=== PATIENT | male | born 1940 | race Caucasian/White ===

== ENCOUNTER 2016-11-06 09:29 | Inpatient (IN) | payer MEDICARE, BC ==
[~2016-11-06] VITALS: Ht 175.3 cm; Wt 100.2 kg
[2016-11-06] MEDS: AMLODIPINE BESYLATE 5 MG TABLET PO SCH (09:00)
[~2016-11-06 09:29] MED LIST: AMLO1CAP15 PO; IRBE300T3 PO; RIVA10TA PO
[2016-11-06] MEDS ORDERED: RIVA20TA2 PO (11:53)
[2016-11-06] MEDS ORDERED: AMLO5TAB2 PO (11:53)
[2016-11-06] MEDS ORDERED: IRBE150T3 PO (11:53)
[2016-11-06] MEDS ORDERED: CELE200C PO (11:53)
[2016-11-06] MEDS ORDERED: ATOR40TA59 PO (11:53)
[2016-11-06 12:00] VITALS: BP 150/60
[2016-11-06 12:40] LABS: CALCIUM 9.3 mg/dL (8.5-10.1); CREATININE 1.3 mg/dL (0.7-1.3); GFR 53.4; POTASSIUM 4.6 mmol/L (3.5-5.1)
[2016-11-06 12:44] LABS: BASO # 0.2 x10^3/uL (0.0-0.2); BASO % 1 % (0-3); EOS % 2 % (0-3); HEMOGLOBIN 12.3 g/dL (13.0-17.5); LYMPH # 0.8 x10^3/uL (1.0-4.8); LYMPH % 4 % (24-48); MEAN CORPUSCULAR HEMOGLOBIN 28 pg (25-35); MEAN CORPUSCULAR HGB CONC 32 g/dL (31-37); MEAN CORPUSCULAR VOLUME 86 fL (79-100); MONO % 36 % (0-9); NEUT % 57 % (31-73); PLATELET COUNT 207 x10^3/uL (140-400); RED BLOOD COUNT 4.42 x10^6/uL (4.30-5.70); RED CELL DISTRIBUTION WIDTH 20.3 % (11.5-14.5); WHITE BLOOD COUNT 20.1 x10^3/uL (4.0-11.0)
[2016-11-06] MEDS ORDERED: VITA400C36 PO (13:05)
[2016-11-06 13:10] LABS: % EOS 1 % (0-5); PLT ESTIMATE ADEQUATE (ADEQUATE)
[2016-11-06 13:11] LABS: ANISOCYTOSIS PRESENT
[2016-11-06 13:22] VITALS: BP 150/60
--- NOTE | 2016-11-06 14:05 | RAD ---
EXAM: Carotid Doppler sonogram. HISTORY: Dizziness. TECHNIQUE: Doppler sonographic evaluation of the neck was performed and static images are submitted for review. FINDINGS: There is moderate to severe atherosclerotic plaque within the right carotid bulb and internal and external carotid arteries and mild atherosclerotic plaque within the left carotid bulb and internal and external carotid arteries. The peak systolic velocity within the right common carotid artery is 87 cm/sec. The peak systolic velocities within the right proximal, mid and distal internal carotid artery are 233 cm/sec, 147 cm/sec, and 95 cm/sec, respectively. The peak systolic velocity within the right ECA is 461 cm/sec. The peak systolic velocity within the left common carotid artery is 139 cm/sec. The peak systolic velocities within the left proximal, mid and distal internal carotid artery are 117 cm/sec, 90 cm/sec, and 105 cm/sec, respectively. There is normal antegrade flow within both vertebral arteries. IMPRESSION: 1. Elevated peak systolic velocity within the right ICA, suggesting greater than 70% stenosis. This is slightly increased compared to the prior study. There is corresponding moderate to severe atherosclerotic plaque within the right carotid bulb and internal and external carotid arteries. 2. Mild atherosclerotic plaque within the left carotid bulb and internal and external carotid arteries, without Doppler evidence to suggest greater than 50% stenosis. 3. Elevated peak systolic velocity within the right external carotid artery, consistent with hemodynamically significant stenosis. This is increased compared to the prior study. PQRS Statement: NASCET criteria were utilized for this exam.
[2016-11-06] MEDS ORDERED: ACET325T9 PO (14:25)
[2016-11-06 15:17] VITALS: BP 157/65
--- NOTE | 2016-11-06 16:12 | RAD ---
PROCEDURE MRI brain without contrast. HISTORY Left arm numbness and dizziness. Gait disturbance. Possible stroke. TECHNIQUE Sagittal T1, axial T1, axial T2, axial FLAIR, axial T2 gradient, coronal T2, and diffusion imaging with ADC map were performed. COMPARISON None. FINDINGS There is symmetric prominence of the ventricles and sulci. FLAIR hyperintensities in the supratentorial white matter are nonspecific but most suggestive of minimal small vessel ischemic disease. There is a small old left frontoparietal infarct. There is a triangular focus of restricted diffusion with ADC correlate in the right thalamus measuring up to 14 millimeters in size. There is no hemorrhagic transformation. There is no acute intracranial hemorrhage or extra-axial fluid collection. Intracranial flow voids are preserved. Cervicomedullary junction is unremarkable. Pituitary and suprasellar region are unremarkable. There is minimal ethmoid mucosal thickening. There is partial opacification of the right mastoid air cells. Jeanette, the patient's nurse, was notified of infarct at 1608 hours. IMPRESSION 1. Small acute infarct right thalamus. 2. Small old left frontoparietal infarct. This likely involves the motor strip. 3. Brain parenchymal volume loss and minimal probable small-vessel ischemic disease. Electronically signed by: Jorge Carcamo MD (Nov 06, 2016 16:10:25)
[2016-11-06] MEDS: LOSARTAN POTASSIUM 50 MG TABLET. PO SCH (16:27)
[2016-11-06] MEDS ORDERED: RIVAROXABAN 10 MG TABLET. PO SCH (17:00)
--- NOTE | 2016-11-06 17:54 | PDOC2 ---
NEUROLOGY CONSULT Date of Admission Date of Admission DATE: 11/06/16 TIME: 17:42 Reason for Consult Reason for Consult: IMPRESSION: Acute small right thalamus infarct. Left side numbness. Right ICA stenosis > 70%. HTN HLD CAD, s/p CABG PE, Hx. DVT. 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 RECOMMENDATIONS/PLAN: Continue Xarelto 20 mg daily. Continue Lipitor 40 mg HS. Brain MRI performed on 11/06. Carotid A US + Doppler, performed. Echo + Bubble study. Fasting lipids. and other labs. Please consult Vascular Surgery. HISTORY OF THE PRESENT ILLNESS: 76-y-old male patient with Hx of a stroke in 2001 with right side weakness but recovered well after stroke. He wake up in the morning on 11/06 feeling numbness in his left side face, UE and LE extremities. The onset time of his symptoms was unknown. he stated no motor or cranial nerve involvement. PAST MEDICAL HISTORY: Please see above. PAST SURGERY HISTORY: Cataract surgery Tonsillectomy Adenoidectomy CABG Hernia Repair ALLERGY: Reviewed. MEDICATIONS: Refer to [facility] FAMILY HISTORY: Non contributory. SOCIAL HISTORY: Lives at home. Denies current smoking, drinking, and illicit drug use. He smoked in past but quit smoking in 1990. REVIEW OF SYSTEMS: Constitutional: No malnutrition, weight loss, cachexia. Head: No recent traumatic brain or head injury. Skin: No edema, or rash. Ear: No infection. Eyes: No vision loss or color blindness. Nose: No bleeding or purulent discharges. Hearing: No hearing decrease. Neck: No injury. Cardiac: CAD, s/p CABG, HTN, HLD. Pulmonary: No COPD. GI: No GI ulcer, GI bleeding. Urinary/genital: No dysuria, hematuria, incontinence, urinary retention. Endocrinologic: No cousin face, craniofacial dysmorphism, polydactyly.. Skeletomuscular: No muscular atrophy, deformity. Neurological: see HP. Psychiatric: Denies drug use/abuse. Otherwise, not [id number] review of systems. PHYSICAL EXAMINATION: General appearance is in subacute distress. HEENT: Normocephalic and nontraumatic. Eyes, nose, ears, and throat are unremarkable. Neck is supple. No lymphadenopathy. No crepitus. Cardiovascular: S1, S2, regular rate and rhythm. Pulmonary: Clear to auscultation bilaterally. Abdomen: Bowel sounds are positive. Abdomen is soft, nontender, and nondistended. Extremities: No rash, lesions, or edema. No restriction of range of motion NEUROLOGICAL EXAMINATION: Alert Oriented to time, place and person. PERRL. EOMI. CN: no focal findings. Muscle tone: within normal. Muscle strength: 5 DTR: 2 Plantar reflex: Flexor response bilaterally Gait: not examined in bed. Sensory exam: no abnormal findings. No cerebellar signs elicited. F-T-N test accurate. Current Medications Current Medications Current Medications Acetaminophen (Tylenol) 650 mg HS PO ; Start 11/06/16 at 21:00 Amlodipine Besylate (Norvasc) 5 mg DAILY PO ; Start 11/06/16 at 09:00 Atorvastatin Calcium (Lipitor) 40 mg DAILY PO ; Start 11/07/16 at 09:00 Celecoxib (Celebrex) 200 mg DAILY PO ; Start 11/07/16 at 09:00 Losartan Potassium (Cozaar) 50 mg DAILY PO Last administered on 11/06/16t 16:27 ; Start 11/06/16 at 15:00 Rivaroxaban (Xarelto) 20 mg DAILYWSUP PO ; Start 11/06/16 at 17:00 Vitamin E 400 unit DAILY PO ; Start 11/07/16 at 09:00 Active Scripts Active Reported Tylenol (Acetaminophen) 325 Mg Tablet 2 Tab PO HS Vitamin E (Vitamin E Mixed) 400 Unit Capsule 400 Unit PO DAILY Celebrex (Celecoxib) 200 Mg Capsule 1 Cap PO DAILY Irbesartan 150 Mg Tablet 150 Mg PO DAILY Atorvastatin Calcium 40 Mg Tablet 1 Tab PO DAILY Amlodipine Besylate 5 Mg Tablet 5 Mg PO DAILY Xarelto (Rivaroxaban) 20 Mg Tablet 20 Mg PO DAILY Allergies Allergies: Coded Allergies: No Known Drug Allergies (Unverified , 01/14/15) Vitals VITALS Vital Signs Date Time Temp Pulse Resp B/P Pulse Ox O2 Delivery O2 Flow Rate FiO2 11/06/16 16:27 95 157/65 11/06/16 15:17 97.7 15 94 Room Air 97.7 Labs Labs Laboratory Tests Test 11/06/16 12:20 White Blood Count 20.1x10^3/uL (4.0-11.0) Red Blood Count 4.42x10^6/uL (4.30-5.70) Hemoglobin 12.3g/dL (13.0-17.5) Hematocrit 38.0% (39.0-53.0) Mean Corpuscular Volume 86fL (79-100) Mean Corpuscular Hemoglobin 28pg (25-35) Mean Corpuscular Hemoglobin Concent 32g/dL (31-37) Red Cell Distribution Width 20.3% (11.5-14.5) Platelet Count 207x10^3/uL (140-400) Neutrophils (%) (Auto) 57% (31-73) Lymphocytes (%) (Auto) 4% (24-48) Monocytes (%) (Auto) 36% (0-9) Eosinophils (%) (Auto) 2% (0-3) Basophils (%) (Auto) 1% (0-3) Neutrophils # (Auto) 11.5x10^3uL (1.8-7.7) Lymphocytes # (Auto) 0.8x10^3/uL (1.0-4.8) Monocytes # (Auto) 7.2x10^3/uL (0.0-1.1) Eosinophils # (Auto) 0.4x10^3/uL (0.0-0.7) Basophils # (Auto) 0.2x10^3/uL (0.0-0.2) Segmented Neutrophils % 56% (35-66) Band Neutrophils % 4% (0-9) Lymphocytes % 5% (24-48) Monocytes % 34% (0-10) Eosinophils % 1% (0-5) Platelet Estimate Adequate (ADEQUATE) Anisocytosis Present Erythrocyte Sedimentation Rate 24 (0-15) Sodium Level 135mmol/L (136-145) Potassium Level 4.6mmol/L (3.5-5.1) Chloride Level 101mmol/L (98-107) Carbon Dioxide Level 26mmol/L (21-32) Anion Gap 8 (6-14) Blood Urea Nitrogen 19mg/dL (8-26) Creatinine 1.3mg/dL (0.7-1.3) Estimated GFR (Cockcroft-Gault) 53.4 Glucose Level 105mg/dL (70-99) Calcium Level 9.3mg/dL (8.5-10.1) Laboratory Tests Test 11/06/16 12:20 White Blood Count 20.1x10^3/uL (4.0-11.0) Red Blood Count 4.42x10^6/uL (4.30-5.70) Hemoglobin 12.3g/dL (13.0-17.5) Hematocrit 38.0% (39.0-53.0) Mean Corpuscular Volume 86fL (79-100) Mean Corpuscular Hemoglobin 28pg (25-35) Mean Corpuscular Hemoglobin Concent 32g/dL (31-37) Red Cell Distribution Width 20.3% (11.5-14.5) Platelet Count 207x10^3/uL (140-400) Neutrophils (%) (Auto) 57% (31-73) Lymphocytes (%) (Auto) 4% (24-48) Monocytes (%) (Auto) 36% (0-9) Eosinophils (%) (Auto) 2% (0-3) Basophils (%) (Auto) 1% (0-3) Neutrophils # (Auto) 11.5x10^3uL (1.8-7.7) Lymphocytes # (Auto) 0.8x10^3/uL (1.0-4.8) Monocytes # (Auto) 7.2x10^3/uL (0.0-1.1) Eosinophils # (Auto) 0.4x10^3/uL (0.0-0.7) Basophils # (Auto) 0.2x10^3/uL (0.0-0.2) Segmented Neutrophils % 56% (35-66) Band Neutrophils % 4% (0-9) Lymphocytes % 5% (24-48) Monocytes % 34% (0-10) Eosinophils % 1% (0-5) Platelet Estimate Adequate (ADEQUATE) Anisocytosis Present Erythrocyte Sedimentation Rate 24 (0-15) Sodium Level 135mmol/L (136-145) Potassium Level 4.6mmol/L (3.5-5.1) Chloride Level 101mmol/L (98-107) Carbon Dioxide Level 26mmol/L (21-32) Anion Gap 8 (6-14) Blood Urea Nitrogen 19mg/dL (8-26) Creatinine 1.3mg/dL (0.7-1.3) Estimated GFR (Cockcroft-Gault) 53.4 Glucose Level 105mg/dL (70-99) Calcium Level 9.3mg/dL (8.5-10.1) KEN ISAAC MD Nov 06, 2016 17:54
[2016-11-06 19:15] VITALS: BP 154/59
--- NOTE | 2016-11-06 19:53 | PDOC ---
Provider Note Provider Note Vascular Consult dictated Imp: Symptomatic rt. carotid stenosis ~ 70% + MRI for small infarct rt. hemisphere Symptoms of numbness lt side , no weakness or speech problems Plan: Hold Xarelto, Start Plavix Tentatively plan for a rt. carotid endarterectomy on . afternoon Nature of procedure and risks explained JAMEEL OVIEDO MD Nov 06, 2016 19:53
[2016-11-06] MEDS: ACETAMINOPHEN 325 MG TABLET. PO SCH (20:36)
[2016-11-06] MEDS: CLOPIDOGREL BISULFATE 75 MG TABLET PO SCH (20:36)
--- NOTE | 2016-11-06 21:03 | PDOC ---
GENERAL General: see dictated H&P. Problems: VITAL SIGNS Vital Signs: Vital Signs Date Time Temp Pulse Resp B/P Pulse Ox O2 Delivery O2 Flow Rate FiO2 11/06/16 19:15 99.0 95 20 154/59 95 Room Air 99.0 ALLERGIES Allergies: Allergies Coded Allergies Type Severity Reaction Last Updated Verified No Known Drug Allergies 01/14/15 No MEDS Medications: Current Medications Medications (Trade) Dose Ordered Sig/Damon Start Time Stop Time Status Last Admin Dose Admin Acetaminophen (Tylenol) 650 mg HS 11/06/16 21:00 11/06/16 20:36 650 MG Amlodipine Besylate (Norvasc) 5 mg DAILY 11/06/16 09:00 Atorvastatin Calcium (Lipitor) 40 mg DAILY 11/07/16 09:00 Celecoxib (Celebrex) 200 mg DAILY 11/07/16 09:00 Clopidogrel Bisulfate (Plavix) 75 mg DAILYWBKFT 11/06/16 20:15 11/06/16 20:36 75 MG Losartan Potassium (Cozaar) 50 mg DAILY 11/06/16 15:00 11/06/16 16:27 50 MG Rivaroxaban (Xarelto) 20 mg DAILYWSUP 11/06/16 17:00 Vitamin E 400 unit DAILY 11/07/16 09:00 LAB Lab: Laboratory Tests Test 11/06/16 12:20 White Blood Count 20.1x10^3/uL (4.0-11.0) Red Blood Count 4.42x10^6/uL (4.30-5.70) Hemoglobin 12.3g/dL (13.0-17.5) Hematocrit 38.0% (39.0-53.0) Mean Corpuscular Volume 86fL (79-100) Mean Corpuscular Hemoglobin 28pg (25-35) Mean Corpuscular Hemoglobin Concent 32g/dL (31-37) Red Cell Distribution Width 20.3% (11.5-14.5) Platelet Count 207x10^3/uL (140-400) Neutrophils (%) (Auto) 57% (31-73) Lymphocytes (%) (Auto) 4% (24-48) Monocytes (%) (Auto) 36% (0-9) Eosinophils (%) (Auto) 2% (0-3) Basophils (%) (Auto) 1% (0-3) Neutrophils # (Auto) 11.5x10^3uL (1.8-7.7) Lymphocytes # (Auto) 0.8x10^3/uL (1.0-4.8) Monocytes # (Auto) 7.2x10^3/uL (0.0-1.1) Eosinophils # (Auto) 0.4x10^3/uL (0.0-0.7) Basophils # (Auto) 0.2x10^3/uL (0.0-0.2) Segmented Neutrophils % 56% (35-66) Band Neutrophils % 4% (0-9) Lymphocytes % 5% (24-48) Monocytes % 34% (0-10) Eosinophils % 1% (0-5) Platelet Estimate Adequate (ADEQUATE) Anisocytosis Present Erythrocyte Sedimentation Rate 24 (0-15) Sodium Level 135mmol/L (136-145) Potassium Level 4.6mmol/L (3.5-5.1) Chloride Level 101mmol/L (98-107) Carbon Dioxide Level 26mmol/L (21-32) Anion Gap 8 (6-14) Blood Urea Nitrogen 19mg/dL (8-26) Creatinine 1.3mg/dL (0.7-1.3) Estimated GFR (Cockcroft-Gault) 53.4 Glucose Level 105mg/dL (70-99) Calcium Level 9.3mg/dL (8.5-10.1) ARSENIO ENGLISH MD Nov 06, 2016 21:03
--- NOTE | 2016-11-06 23:36 | HP ---
ADMIT DATE: 11/06/2016 CHIEF COMPLAINT AND HISTORY OF PRESENT ILLNESS: This 76-year-old white male who is well known to me from followup in the office for many years. The patient was admitted through the office on the day of admission after waking up with left-sided facial and arm and leg numbness. He had no motor deficits with this and was felt that he was having TIA versus stroke and was admitted for the same. PAST MEDICAL HISTORY: Remarkable for prior DVT for which he takes Xarelto. He has a history of prior CABG. He has had prior left-sided CVA in the past. MEDICATIONS: Brought with the patient, listed on the computer and have been addressed. ALLERGIES: He has no known drug allergies. SOCIAL HISTORY: The patient is a nonsmoker, nondrinker, does not use drugs. , lives at home with his . FAMILY HISTORY: Noncontributory. REVIEW OF SYSTEMS: As mentioned above. PHYSICAL EXAMINATION: GENERAL: He is a well-developed, well-nourished, pleasant white male, in no acute distress. VITAL SIGNS: Stable. He is afebrile. HEAD, EYES, EARS, NOSE AND THROAT: Remarkable for glasses. There is no facial weakness. NECK: Supple, without any thyromegaly. CHEST: Clear to auscultation and percussion. HEART: Regular rate and rhythm without S3, S4 or murmur. ABDOMEN: Soft, nontender, without hepatosplenomegaly or masses. EXTREMITIES: Without cyanosis, clubbing or edema. NEUROLOGIC: Nonfocal. IMPRESSION: Transient ischemic attack versus cerebrovascular accident. PLAN: The patient has been admitted and will be placed on telemetry. Neurology has been consulted. An MRI of the head . Laboratory has been ordered and the patient will be monitored, managed and treated appropriately. ARSENIO ENGLISH MD DR: OREN/analisa JOB#: [id number] / [id number]
[2016-11-06 23:43] VITALS: BP_SYST 145; BP_SYST 162; BP_DIAS 60; BP_DIAS 66
[2016-11-07 03:51] VITALS: BP 126/46
[2016-11-07 04:53] LABS: CHOLESTEROL/HDL RATIO 5.3
--- NOTE | 2016-11-07 05:27 | CONS ---
DATE OF CONSULTATION: 11/06/2016 REASON FOR CONSULTATION: Symptomatic right carotid stenosis. HISTORY OF PRESENT ILLNESS: This is a very pleasant 76-year-old male who presented with numbness on the left side of the face, the left arm and a little bit in the left leg this morning. This has persisted. He has had no weakness, no speech trouble. A carotid Doppler showed a 70% stenosis plus of the right carotid artery, minimal disease on the left side. An MRI was positive for a small right hemispheric stroke and an old left hemispheric stroke. He did have the left hemispheric stroke in 2001 with some right-sided weakness, but has recovered completely from that and had minimal carotid disease on the left side at that time. PAST MEDICAL HISTORY: He has had open heart surgery in the with vein harvested from the right leg and mammary bypass. He has a history of DVT and he is on Xarelto for that. PAST SURGICAL HISTORY: Other operations besides coronary artery bypass include hernia repair, cataract surgery and ____. ALLERGIES: None known. MEDICATIONS: As I said, he is on Xarelto, but he is not on aspirin. He has chronic low back pain, cannot walk very far because of his back pain and his legs giving out. He has minimal swelling from his DVT at this time. The patient is not a diabetic. Nonsmoker, quit in 1989 after his heart surgery. PHYSICAL EXAMINATION: GENERAL: A very pleasant male with speech clear, awake, alert, in no acute distress. CARDIOVASCULAR: Heart rate is regular. Well healed median sternotomy. LUNGS: Nonlabored respirations. ABDOMEN: Very obese. I could not feel any pulsatile masses even if they were present. EXTREMITIES: He has got femoral pulses intact. Popliteal pulses are very weak. I could not appreciate pedal pulses. No severe edema. He has got 2+ carotid pulses, 2+ radial pulses. NEUROLOGIC: Motor function is intact. He states he does have some numbers on the left side. IMPRESSION: Symptomatic right carotid stenosis. PLAN: Options were discussed with the patient. I have recommended holding the Xarelto. We will start Plavix. I have recommended right carotid endarterectomy under cervical block anesthetic. The nature of that procedure including the risk of bleeding, stroke, nerve injury, recurrent disease, infection were explained and he is agreeable to proceed and we would tentatively schedule this for pending an okay by Dr. Appl and if okay with the Neurologist, Dr. Rosas. I thank you for allowing me to see him. JAMEEL OVIEDO MD DR: ARISTEO/analisa JOB#: [id number] / [id number]
[2016-11-07 07:00] VITALS: BP 154/70
[2016-11-07] MEDS ORDERED: CLOPIDOGREL BISULFATE 75 MG TABLET PO SCH (08:00)
[2016-11-07] MEDS ORDERED: ATORVASTATIN CALCIUM 40 MG TABLET. PO SCH (09:00)
[2016-11-07] MEDS ORDERED: LEVO500T8 PO (09:15)
[2016-11-07] MEDS: CELECOXIB 200 MG CAPSULE PO SCH (09:22)
[2016-11-07] MEDS: CLOPIDOGREL BISULFATE 75 MG TABLET PO SCH (09:22)
[2016-11-07] MEDS: AMLODIPINE BESYLATE 5 MG TABLET PO SCH (09:22)
[2016-11-07] MEDS: VITAMIN E 200 UNIT CAPSULE. PO SCH (09:23)
[2016-11-07] MEDS: LOSARTAN POTASSIUM 50 MG TABLET. PO SCH (09:23)
[2016-11-07] MEDS: LEVOFLOXACIN 500 MG TABLET PO SCH (09:30)
[2016-11-07 10:43] VITALS: BP 147/65
--- NOTE | 2016-11-07 11:53 | PDOC ---
PROGRESS NOTES Objective Objective Vascular Surgery follow up: Patient is out of the room getting an echo. at bedside. Updated her on the plan for right CEA tomorrow with Dr. Martinez as long as neuro and PCP agree with plan. Perop orders have been done. Xarelto being held for surgery. Plavix initiated. Vital Signs Date Time Temp Pulse Resp B/P Pulse Ox O2 Delivery O2 Flow Rate FiO2 11/07/16 10:43 97.7 91 18 147/65 91 Room Air 97.7 Intake and Output 11/07/16 07:00 Intake Total 400 ml Output Total 600 ml Balance -200 ml Intake Oral 400 ml Output Urine Total 600 ml # Voids 7 Comment Review of Relevant I have reviewed the following items kiley (where applicable) has been applied. Labs Laboratory Tests Test 11/06/16 12:20 11/07/16 03:15 White Blood Count 20.1x10^3/uL (4.0-11.0) Red Blood Count 4.42x10^6/uL (4.30-5.70) Hemoglobin 12.3g/dL (13.0-17.5) Hematocrit 38.0% (39.0-53.0) Mean Corpuscular Volume 86fL (79-100) Mean Corpuscular Hemoglobin 28pg (25-35) Mean Corpuscular Hemoglobin Concent 32g/dL (31-37) Red Cell Distribution Width 20.3% (11.5-14.5) Platelet Count 207x10^3/uL (140-400) Neutrophils (%) (Auto) 57% (31-73) Lymphocytes (%) (Auto) 4% (24-48) Monocytes (%) (Auto) 36% (0-9) Eosinophils (%) (Auto) 2% (0-3) Basophils (%) (Auto) 1% (0-3) Neutrophils # (Auto) 11.5x10^3uL (1.8-7.7) Lymphocytes # (Auto) 0.8x10^3/uL (1.0-4.8) Monocytes # (Auto) 7.2x10^3/uL (0.0-1.1) Eosinophils # (Auto) 0.4x10^3/uL (0.0-0.7) Basophils # (Auto) 0.2x10^3/uL (0.0-0.2) Segmented Neutrophils % 56% (35-66) Band Neutrophils % 4% (0-9) Lymphocytes % 5% (24-48) Monocytes % 34% (0-10) Eosinophils % 1% (0-5) Platelet Estimate Adequate (ADEQUATE) Anisocytosis Present Erythrocyte Sedimentation Rate 24 (0-15) Sodium Level 135mmol/L (136-145) Potassium Level 4.6mmol/L (3.5-5.1) Chloride Level 101mmol/L (98-107) Carbon Dioxide Level 26mmol/L (21-32) Anion Gap 8 (6-14) Blood Urea Nitrogen 19mg/dL (8-26) Creatinine 1.3mg/dL (0.7-1.3) Estimated GFR (Cockcroft-Gault) 53.4 Glucose Level 105mg/dL (70-99) Calcium Level 9.3mg/dL (8.5-10.1) Triglycerides Level 128mg/dL (0-150) Cholesterol Level 96mg/dL (0-200) LDL Cholesterol, Calculated 52mg/dL (0-100) VLDL Cholesterol, Calculated 26mg/dL (0-40) HDL Cholesterol 18mg/dL (40-60) Cholesterol/HDL Ratio 5.3 Laboratory Tests Test 11/06/16 12:20 11/07/16 03:15 White Blood Count 20.1x10^3/uL (4.0-11.0) Red Blood Count 4.42x10^6/uL (4.30-5.70) Hemoglobin 12.3g/dL (13.0-17.5) Hematocrit 38.0% (39.0-53.0) Mean Corpuscular Volume 86fL (79-100) Mean Corpuscular Hemoglobin 28pg (25-35) Mean Corpuscular Hemoglobin Concent 32g/dL (31-37) Red Cell Distribution Width 20.3% (11.5-14.5) Platelet Count 207x10^3/uL (140-400) Neutrophils (%) (Auto) 57% (31-73) Lymphocytes (%) (Auto) 4% (24-48) Monocytes (%) (Auto) 36% (0-9) Eosinophils (%) (Auto) 2% (0-3) Basophils (%) (Auto) 1% (0-3) Neutrophils # (Auto) 11.5x10^3uL (1.8-7.7) Lymphocytes # (Auto) 0.8x10^3/uL (1.0-4.8) Monocytes # (Auto) 7.2x10^3/uL (0.0-1.1) Eosinophils # (Auto) 0.4x10^3/uL (0.0-0.7) Basophils # (Auto) 0.2x10^3/uL (0.0-0.2) Segmented Neutrophils % 56% (35-66) Band Neutrophils % 4% (0-9) Lymphocytes % 5% (24-48) Monocytes % 34% (0-10) Eosinophils % 1% (0-5) Platelet Estimate Adequate (ADEQUATE) Anisocytosis Present Erythrocyte Sedimentation Rate 24 (0-15) Sodium Level 135mmol/L (136-145) Potassium Level 4.6mmol/L (3.5-5.1) Chloride Level 101mmol/L (98-107) Carbon Dioxide Level 26mmol/L (21-32) Anion Gap 8 (6-14) Blood Urea Nitrogen 19mg/dL (8-26) Creatinine 1.3mg/dL (0.7-1.3) Estimated GFR (Cockcroft-Gault) 53.4 Glucose Level 105mg/dL (70-99) Calcium Level 9.3mg/dL (8.5-10.1) Triglycerides Level 128mg/dL (0-150) Cholesterol Level 96mg/dL (0-200) LDL Cholesterol, Calculated 52mg/dL (0-100) VLDL Cholesterol, Calculated 26mg/dL (0-40) HDL Cholesterol 18mg/dL (40-60) Cholesterol/HDL Ratio 5.3 Medications Current Medications Acetaminophen (Tylenol) 650 mg HS PO Last administered on 11/06/16 20:36; Start 11/06/16 at 21:00 Amlodipine Besylate (Norvasc) 5 mg DAILY PO Last administered on 11/07/16 09: 22; Start 11/06/16 at 09:00 Atorvastatin Calcium (Lipitor) 40 mg DAILY PO Last administered on 11/07/16 09 :23; Start 11/07/16 at 09:00 Celecoxib (Celebrex) 200 mg DAILY PO Last administered on 11/07/16 09:22; Start 11/07/16 at 09:00 Losartan Potassium (Cozaar) 50 mg DAILY PO Last administered on 11/07/16 09:23 ; Start 11/06/16 at 15:00 Rivaroxaban (Xarelto) 20 mg DAILYWSUP PO ; Start 11/06/16 at 17:00; Stop at 10:43; Status DC Vitamin E 400 unit DAILY PO Last administered on 11/07/16 09:23; Start at 09:00 Clopidogrel Bisulfate (Plavix) 75 mg DAILYWBKFT PO ; Start 11/07/16 at 08:00; Stop 11/07/16 at 08:00; Status DC Clopidogrel Bisulfate 75 mg 75 mg DAILYWBKFT PO Last administered on 11/07/16 09:22; Start 11/06/16 at 20:15 Heparin Sodium (Porcine) 5000 unit/Lactated Ringer's 505 ml @ 505 mls/hr 1X PERIOP ONCE IRR ; Start 11/08/16 at 08:00; Stop 11/08/16 at 08:59 Cefazolin Sodium/ Sodium Chloride (Ancef/Iv Sodium Chloride 0.9% 500ml Bag) 500 ml @ 500 mls/hr 1X PERIOP ONCE IRR ; Start 11/08/16 at 08:00; Stop 11/08/16 at 08:59 Levofloxacin (Levaquin) 500 mg DAILY06 PO Last administered on 11/07/16 09:30 ; Start 11/07/16 at 09:30; Stop 11/11/16 at 12:00 Active Scripts Active Reported Levofloxacin 500 Mg Tablet 1 Tab PO DAILY 10 Days Tylenol (Acetaminophen) 325 Mg Tablet 2 Tab PO HS Vitamin E (Vitamin E Mixed) 400 Unit Capsule 400 Unit PO DAILY Celebrex (Celecoxib) 200 Mg Capsule 1 Cap PO DAILY Irbesartan 150 Mg Tablet 150 Mg PO DAILY Atorvastatin Calcium 40 Mg Tablet 1 Tab PO DAILY Amlodipine Besylate 5 Mg Tablet 5 Mg PO DAILY Xarelto (Rivaroxaban) 20 Mg Tablet 20 Mg PO DAILY Vitals/I & O Vital Sign - Last 24 Hours 11/06/16 11/06/16 11/06/16 11/06/16 12:00 12:00 13:22 15:17 Temp 97.7 97.7 97.7 97.7 97.7 97.7 97.7 97.7 Pulse 98 98 98 95 Resp 15 15 15 B/P 150/60 150/60 150/60 157/65 Pulse Ox 94 94 94 94 O2 Delivery Room Air Room Air Room Air 11/06/16 11/06/16 11/06/16 11/06/16 16:27 19:15 20:00 23:43 Temp 99.0 99.1 99.0 99.1 Pulse 95 95 85 Resp 20 20 B/P 157/65 154/59 145/60 Pulse Ox 95 95 O2 Delivery Room Air Room Air Room Air 11/07/16 11/07/16 11/07/16 11/07/16 03:51 07:00 08:00 09:22 Temp 98.1 98.2 98.1 98.2 Pulse 86 81 81 Resp 18 18 B/P 126/46 154/70 154/70 Pulse Ox 94 92 O2 Delivery Room Air Room Air Room Air 11/07/16 11/07/16 09:23 10:43 Temp 97.7 97.7 Pulse 81 91 Resp 18 B/P 154/70 147/65 Pulse Ox 91 O2 Delivery Room Air Intake and Output 11/06/16 11/06/16 11/07/16 15:00 23:00 07:00 Intake Total 400 ml Output Total 600 ml Balance 400 ml -600 ml TIBURCIO MARTINEZ APRN Nov 07, 2016 11:53
--- NOTE | 2016-11-07 12:26 | CARD ---
APPROVED REPORT EXAM: Two-dimensional and M-mode echocardiogram with Doppler and color Doppler with bubble study. Other Information Quality : Average Rhythm : NSR INDICATION CVA/TIA Echo Enhancing Agent Indication: Rule Out Septal Defect Agent/Amount Used: Agitated Saline 8mL 2D DIMENSIONS RVDd2.6 (2.9-3.5cm)Left Atrium(2D)4.0 (1.6-4.0cm) IVSd1.5 (0.7-1.1cm)Aortic Root(2D)3.6 (2.0-3.7cm) LVDd5.3 (3.9-5.9cm)LVOT Diameter2.0 (1.8-2.4cm) PWd1.5 (0.7-1.1cm)LVDs3.9 (2.5-4.0cm) FS (%) 26.6 %SV69.7 ml LVEF(%)51.7 (>50%) Aortic Valve AoV Peak Chan.150.0cm/sAoV VTI25.3cm AO Peak GR.9.0mmHgLVOT Peak Chan.104.7cm/s AO Mean GR.5mmHgAVA (VMAX)2.27cm2 EDI (VTI)2.50cm2 Mitral Valve MV E Zwbsnwzj19.4cm/sMV E Peak Gr.5mmHg MV DECEL [id number] A Cmokdmjy67.3cm/s MV E Mean Gr.2mmHgMV ETG16re E/A Ratio0.7MV A Upvnejvk994sz MVA (PHT)4.62cm2 Tricuspid Valve TR P. Vdmhtwxf356kr/sRAP JPJXDRHN4ttFm TR Peak Gr.97sfRrKRYI56yrNr Pulmonary Vein S1 Ihaahiqg10.6cm/sD2 Guctzwvt15.0cm/s LEFT VENTRICLE The left ventricle is normal size. There is mild concentric left ventricular hypertrophy. Left ventri chetna systolic function is normal. The Ejection Fraction is 50-55%. There is normal LV segmental wall m otion. Tissue Doppler imaging reveals mild left ventricular diastolic dysfunction. Transmitral Dopple r flow pattern is Grade I-abnormal relaxation pattern. RIGHT VENTRICLE The right ventricle is normal size. The right ventricular systolic function is normal. ATRIA The left atrium size is normal. The right atrium size is normal. The interatrial septum is intact wit h no evidence for an atrial septal defect or patent foramen ovale as noted on 2-D or Doppler imaging. Negative bubble study. AORTIC VALVE The aortic valve is mildly sclerotic. The aortic valve is trileaflet. Doppler and Color Flow revealed no significant aortic regurgitation. There is no significant aortic valvular stenosis. MITRAL VALVE Mitral annular calcification is mild. There is no mitral valve stenosis. Doppler and Color Flow revea led trace mitral valve regurgitation noted. TRICUSPID VALVE The tricuspid valve is normal in structure and function. Doppler and Color Flow revealed trace tricus pid regurgitation. The PA pressure was estimated at 15 mmHg. There is no tricuspid valve stenosis. PULMONIC VALVE The pulmonic valve is not well visualized. Doppler and Color Flow revealed no pulmonic valvular regur gitation. There is no pulmonic valvular stenosis. GREAT VESSELS The aortic root is normal in size. Normal pulmonary venous flow (Doppler). The IVC was not visualized . PERICARDIAL EFFUSION There is no evidence of significant pericardial effusion. Critical Notification Critical Value: No <Conclusion> The left ventricle is normal size. Left ventricle systolic function is normal. The Ejection Fraction is 50-55%. There is mild concentric left ventricular hypertrophy. The interatrial septum is intact with no evidence for an atrial septal defect or patent foramen ovale as noted on 2-D or Doppler imaging. Negative bubble study. There is no significant aortic valvular stenosis. Doppler and Color Flow revealed no significant aortic regurgitation. Doppler and Color Flow revealed trace mitral valve regurgitation. Doppler and Color Flow revealed trace tricuspid regurgitation. The PA pressure was estimated at 15 mmHg.
--- NOTE | 2016-11-07 14:59 | PDOC ---
PROGRESS NOTES Assessment Assessment Acute small right thalamus infarct. Left side numbness. Right ICA stenosis > 70%. HTN HLD CAD, s/p CABG PE, Hx. DVT. 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 RECOMMENDATIONS/PLAN: He has been treated with Xarelto 20 mg daily. Continue Lipitor 40 mg HS. Vascular Surgery consulted. Discussed with him and his in detail at bedside on 11/07. Brain MRI performed on 11/06 stroke as above. Carotid A US + Doppler showed high grade stenosis in right ICA. Echo + Bubble study showed no significant abnormal findings. Fasting lipids were WNL. HISTORY OF THE PRESENT ILLNESS: 76-y-old male patient with Hx of a stroke in 2001 with right side weakness but recovered well after stroke. He wake up in the morning on 11/06 feeling numbness in his left side face, UE and LE extremities. The onset time of his symptoms was unknown. he stated no motor or cranial nerve involvement. No motor deficits. PAST MEDICAL HISTORY: Please see above. PAST SURGERY HISTORY: Cataract surgery Tonsillectomy Adenoidectomy CABG Hernia Repair ALLERGY: Reviewed. MEDICATIONS: Refer to [facility] FAMILY HISTORY: Non contributory. SOCIAL HISTORY: Lives at home. Denies current smoking, drinking, and illicit drug use. He smoked in past but quit smoking in 1990. REVIEW OF SYSTEMS: Constitutional: No malnutrition, weight loss, cachexia. Head: No recent traumatic brain or head injury. Skin: No edema, or rash. Ear: No infection. Eyes: No vision loss or color blindness. Nose: No bleeding or purulent discharges. Hearing: No hearing decrease. Neck: No injury. Cardiac: CAD, s/p CABG, HTN, HLD. Pulmonary: No COPD. GI: No GI ulcer, GI bleeding. Urinary/genital: No dysuria, hematuria, incontinence, urinary retention. Endocrinologic: No cousin face, craniofacial dysmorphism, polydactyly.. Skeletomuscular: No muscular atrophy, deformity. Neurological: see HP. Psychiatric: Denies drug use/abuse. Otherwise, not [id number] review of systems. PHYSICAL EXAMINATION: General appearance is in subacute distress. HEENT: Normocephalic and nontraumatic. Eyes, nose, ears, and throat are unremarkable. Neck is supple. No lymphadenopathy. No crepitus. Cardiovascular: S1, S2, regular rate and rhythm. Pulmonary: Clear to auscultation bilaterally. Abdomen: Bowel sounds are positive. Abdomen is soft, nontender, and nondistended. Extremities: No rash, lesions, or edema. No restriction of range of motion NEUROLOGICAL EXAMINATION: Alert Oriented to time, place and person. PERRL. EOMI. CN: no focal findings. Muscle tone: within normal. Muscle strength: 5 DTR: 2 Plantar reflex: Flexor response bilaterally Gait: at his baseline normal. Sensory exam: no abnormal findings. No cerebellar signs elicited. F-T-N test accurate. Objective Objective Vital Signs Date Time Temp Pulse Resp B/P Pulse Ox O2 Delivery O2 Flow Rate FiO2 11/07/16 10:43 97.7 91 18 147/65 91 Room Air 97.7 Intake and Output 11/07/16 07:00 Intake Total 400 ml Output Total 600 ml Balance -200 ml Intake Oral 400 ml Output Urine Total 600 ml # Voids 7 Vitals Signs Vitals VS - Last 72 Hours, by Label Date Time Temp Pulse Resp B/P Pulse Ox O2 Delivery O2 Flow Rate FiO2 11/07/16 10:43 97.7 91 18 147/65 91 Room Air 97.7 11/07/16 09:23 81 154/70 11/07/16 09:22 81 154/70 11/07/16 08:00 Room Air 11/07/16 07:00 98.2 81 18 154/70 92 Room Air 98.2 11/07/16 03:51 98.1 86 18 126/46 94 Room Air 98.1 11/06/16 23:43 99.1 85 20 145/60 95 Room Air 99.1 11/06/16 20:00 Room Air 11/06/16 19:15 99.0 95 20 154/59 95 Room Air 99.0 11/06/16 16:27 95 157/65 11/06/16 15:17 97.7 95 15 157/65 94 Room Air 97.7 11/06/16 13:22 97.7 98 150/60 94 97.7 11/06/16 12:00 97.7 98 15 150/60 94 Room Air 97.7 11/06/16 12:00 97.7 98 15 150/60 94 Room Air 97.7 11/06/16 11:00 Room Air Laboratory Laboratory Laboratory Tests Test 11/07/16 03:15 Triglycerides Level 128mg/dL (0-150) Cholesterol Level 96mg/dL (0-200) LDL Cholesterol, Calculated 52mg/dL (0-100) VLDL Cholesterol, Calculated 26mg/dL (0-40) HDL Cholesterol 18mg/dL (40-60) Cholesterol/HDL Ratio 5.3 Medication Medications Current Medications Acetaminophen (Tylenol) 650 mg HS PO Last administered on 11/06/16 20:36; Start 11/06/16 at 21:00 Atorvastatin Calcium (Lipitor) 40 mg DAILY PO Last administered on 11/07/16 09 :23; Start 11/07/16 at 09:00 Cefazolin Sodium/ Sodium Chloride (Ancef/Iv Sodium Chloride 0.9% 500ml Bag) 500 ml @ 500 mls/hr 1X PERIOP ONCE IRR ; Start 11/08/16 at 08:00; Stop 11/08/16 at 08:59 Celecoxib (Celebrex) 200 mg DAILY PO Last administered on 11/07/16 09:22; Start 11/07/16 at 09:00 Clopidogrel Bisulfate (Plavix) 75 mg DAILYWBKFT PO ; Start 11/07/16 at 08:00; Stop 11/07/16 at 08:00; Status DC Clopidogrel Bisulfate 75 mg 75 mg DAILYWBKFT PO Last administered on 11/07/16 09:22; Start 11/06/16 at 20:15 Fentanyl Citrate (Fentanyl 2ml Vial) 25 mcg PRN Q5MIN PRN IV MILD PAIN; Start 11/08/16 at 07:00; Stop 11/08/16 at 18:00 Fentanyl Citrate (Fentanyl 2ml Vial) 50 mcg PRN Q5MIN PRN IV MODERATE PAIN; Start 11/08/16 at 07:00; Stop 11/08/16 at 18:00 Heparin Sodium (Porcine) 5000 unit/Lactated Ringer's 505 ml @ 505 mls/hr 1X PERIOP ONCE IRR ; Start 11/08/16 at 08:00; Stop 11/08/16 at 08:59 Hydromorphone HCl (Dilaudid) 0.5 mg PRN Q10MIN PRN IV SEVERE PAIN, Second choice; Start 11/08/16 at 07:00; Stop 11/08/16 at 18:00 Lactated Ringer's (Iv Lactated Ringers) 1,000 ml @ 30 mls/hr Q24H IV ; Start at 07:00; Stop 11/08/16 at 18:59 Levofloxacin (Levaquin) 500 mg DAILY06 PO Last administered on 11/07/16 09:30 ; Start 11/07/16 at 09:30; Stop 11/11/16 at 12:00 Lidocaine HCl 2 ml 1X PRN PRN ID IV START; Start 11/08/16 at 07:00; Stop at 18:00 Losartan Potassium (Cozaar) 50 mg DAILY PO Last administered on 11/07/16 09:23 ; Start 11/06/16 at 15:00 Morphine Sulfate 1 mg 1 mg PRN Q10MIN PRN IV SEVERE PAIN; Start 11/08/16 at 07: 00; Stop 11/08/16 at 18:00 Prochlorperazine Edisylate (Compazine) 5 mg PACU PRN PRN IV NAUSEA; Start 11/08 at 07:00; Stop 11/08/16 at 18:00 Rivaroxaban (Xarelto) 20 mg DAILYWSUP PO ; Start 11/06/16 at 17:00; Stop at 10:43; Status DC Vitamin E 400 unit DAILY PO Last administered on 11/07/16 09:23; Start at 09:00 Comment Review of Relevant I have reviewed the following items kiley (where applicable) has been applied. KEN ISAAC MD Nov 07, 2016 14:59
[2016-11-07 15:00] VITALS: BP 125/57
--- NOTE | 2016-11-07 17:53 | PDOC ---
GENERAL General: vss and afebrile. awake and alert. still with left sided numbness. right thalamic infarct on mri and >70% right ICA stenosis. for CEA tomorrow. help of neurology and vascular surgery appreciated. Problems: VITAL SIGNS Vital Signs: Vital Signs Date Time Temp Pulse Resp B/P Pulse Ox O2 Delivery O2 Flow Rate FiO2 11/07/16 15:00 98.0 85 18 125/57 94 Room Air 98.0 I & O I & O Intake and Output 11/07/16 07:00 Intake Total 400 ml Output Total 600 ml Balance -200 ml Intake Oral 400 ml Output Urine Total 600 ml # Voids 7 ALLERGIES Allergies: Allergies Coded Allergies Type Severity Reaction Last Updated Verified No Known Drug Allergies 01/14/15 No MEDS Medications: Current Medications Medications (Trade) Dose Ordered Sig/Damon Start Time Stop Time Status Last Admin Dose Admin Acetaminophen (Tylenol) 650 mg HS 11/06/16 21:00 11/06/16 20:36 650 MG Amlodipine Besylate (Norvasc) 5 mg DAILY 11/06/16 09:00 11/07/16 09:22 5 MG Atorvastatin Calcium (Lipitor) 40 mg DAILY 11/07/16 09:00 11/07/16 09:23 40 MG Cefazolin Sodium/ Sodium Chloride (Ancef/Iv Sodium Chloride 0.9% 500ml Bag) 500 ml @ 500 mls/hr 1X PERIOP ONCE 11/08/16 08:00 11/08/16 08:59 Celecoxib (Celebrex) 200 mg DAILY 11/07/16 09:00 11/07/16 09:22 200 MG Clopidogrel Bisulfate (Plavix) 75 mg DAILYWBKFT 11/07/16 08:00 11/07/16 08:00 DC Clopidogrel Bisulfate 75 mg 75 mg DAILYWBKFT 11/06/16 20:15 11/07/16 09:22 75 MG Fentanyl Citrate (Fentanyl 2ml Vial) 50 mcg PRN Q5MIN PRN 11/08/16 07:00 11/08/16 18:00 Heparin Sodium (Porcine) 5000 unit/Lactated Ringer's 505 ml @ 505 mls/hr 1X PERIOP ONCE 11/08/16 08:00 11/08/16 08:59 Hydromorphone HCl (Dilaudid) 0.5 mg PRN Q10MIN PRN 11/08/16 07:00 11/08/16 18:00 Lactated Ringer's (Iv Lactated Ringers) 1,000 ml @ 30 mls/hr Q24H 11/08/16 07:00 11/08/16 18:59 Levofloxacin (Levaquin) 500 mg DAILY06 11/07/16 09:30 11/11/16 12:00 11/07/16 09:30 500 MG Lidocaine HCl 2 ml 1X PRN PRN 11/08/16 07:00 11/08/16 18:00 Losartan Potassium (Cozaar) 50 mg DAILY 11/06/16 15:00 11/07/16 09:23 50 MG Morphine Sulfate 1 mg 1 mg PRN Q10MIN PRN 11/08/16 07:00 11/08/16 18:00 Prochlorperazine Edisylate (Compazine) 5 mg PACU PRN PRN 11/08/16 07:00 11/08/16 18:00 Rivaroxaban (Xarelto) 20 mg DAILYWSUP 11/06/16 17:00 11/07/16 10:43 DC Vitamin E 400 unit DAILY 11/07/16 09:00 11/07/16 09:23 400 UNIT LAB Lab: Laboratory Tests Test 11/07/16 03:15 Triglycerides Level 128mg/dL (0-150) Cholesterol Level 96mg/dL (0-200) LDL Cholesterol, Calculated 52mg/dL (0-100) VLDL Cholesterol, Calculated 26mg/dL (0-40) HDL Cholesterol 18mg/dL (40-60) Cholesterol/HDL Ratio 5.3 ARSENIO ENGLISH MD Nov 07, 2016 17:53
[2016-11-07 19:20] VITALS: BP 141/61
[2016-11-07] MEDS: ACETAMINOPHEN 325 MG TABLET. PO SCH (22:04)
[2016-11-07 23:00] VITALS: BP 148/65
[2016-11-08 03:19] VITALS: BP 145/65
[2016-11-08] MEDS: LEVOFLOXACIN 500 MG TABLET PO SCH (06:19)
[2016-11-08 07:00] VITALS: BP 140/63
[2016-11-08] MEDS ORDERED: HYDROMORPHONE 2 MG/ML VIAL. IV PRN (07:00)
[2016-11-08] MEDS ORDERED: PROCHLORPERAZINE 10 MG/2 ML VIAL. IV PRN ×2 (07:00→19:00)
[2016-11-08] MEDS ORDERED: IV RINGERS,LACTATED 1000ML 1,000 ML IV SCH (07:00)
[2016-11-08] MEDS ORDERED: FENTANYL PF 100 MCG/2 ML VIAL. IV PRN ×2 (07:00)
[2016-11-08] MEDS ORDERED: LIDOCAINE 1% 1 ML SYRINGE. ID PRN (07:00)
[2016-11-08] MEDS ORDERED: MORPHINE SULFATE 2 MG/ML DISP.SYRIN. IV PRN ×3 (07:00→19:00)
[2016-11-08] MEDS ORDERED: CEFAZOLIN SODIUM 1 GM in IV NORMAL SALINE 500ML BAG 500 ML IRR ONE (08:00)
[2016-11-08] MEDS ORDERED: HEPARIN S0DIUM 5,000 UNIT in IV RINGERS,LACTATED 500ML 500 ML IRR ONE (08:00)
[2016-11-08] MEDS: CLOPIDOGREL BISULFATE 75 MG TABLET PO SCH (08:00)
[2016-11-08] MEDS: AMLODIPINE BESYLATE 5 MG TABLET PO SCH (09:00)
[2016-11-08] MEDS: VITAMIN E 200 UNIT CAPSULE. PO SCH (09:00)
[2016-11-08] MEDS: LOSARTAN POTASSIUM 50 MG TABLET. PO SCH (09:00)
[2016-11-08] MEDS: CELECOXIB 200 MG CAPSULE PO SCH (09:00)
[2016-11-08] MEDS: ATORVASTATIN CALCIUM 40 MG TABLET. PO SCH (09:00)
[2016-11-08 10:44] VITALS: BP 146/71
--- NOTE | 2016-11-08 14:09 | PDOC ---
PROGRESS NOTES Assessment Assessment Acute small right thalamus infarct. Left side numbness. Right ICA stenosis > 70%. HTN HLD CAD, s/p CABG PE, Hx. DVT. 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 RECOMMENDATIONS/PLAN: He was treated with Xarelto 20 mg daily but discontinued on 11/06 and Plavix since. Hold due to right carotid A endarterectomy on 11/08/16. Continue Lipitor 40 mg HS. Vascular Surgery consulted. Discussed with him and his in detail at bedside on 11/07. Brain MRI performed on 11/06 stroke as above. Carotid A US + Doppler showed high grade stenosis in right ICA. Echo + Bubble study showed no significant abnormal findings. Fasting lipids were WNL. HISTORY OF THE PRESENT ILLNESS: 76-y-old male patient with Hx of a stroke in 2001 with right side weakness but recovered well after stroke. He wake up in the morning on 11/06 feeling numbness in his left side face, UE and LE extremities. The onset time of his symptoms was unknown. he stated no motor or cranial nerve involvement. No motor deficits, but still has sensory symptoms on the left side UE and LE on 11/08. PAST MEDICAL HISTORY: Please see above. PAST SURGERY HISTORY: Cataract surgery Tonsillectomy Adenoidectomy CABG Hernia Repair ALLERGY: Reviewed. MEDICATIONS: Refer to [facility] FAMILY HISTORY: Non contributory. SOCIAL HISTORY: Lives at home. Denies current smoking, drinking, and illicit drug use. He smoked in past but quit smoking in 1990. REVIEW OF SYSTEMS: Constitutional: No malnutrition, weight loss, cachexia. Head: No recent traumatic brain or head injury. Skin: No edema, or rash. Ear: No infection. Eyes: No vision loss or color blindness. Nose: No bleeding or purulent discharges. Hearing: No hearing decrease. Neck: No injury. Cardiac: CAD, s/p CABG, HTN, HLD. Pulmonary: No COPD. GI: No GI ulcer, GI bleeding. Urinary/genital: No dysuria, hematuria, incontinence, urinary retention. Endocrinologic: No cousin face, craniofacial dysmorphism, polydactyly.. Skeletomuscular: No muscular atrophy, deformity. Neurological: see HP. Psychiatric: Denies drug use/abuse. Otherwise, not [id number] review of systems. PHYSICAL EXAMINATION: General appearance is in subacute distress. HEENT: Normocephalic and nontraumatic. Eyes, nose, ears, and throat are unremarkable. Neck is supple. No lymphadenopathy. No crepitus. Cardiovascular: S1, S2, regular rate and rhythm. Pulmonary: Clear to auscultation bilaterally. Abdomen: Bowel sounds are positive. Abdomen is soft, nontender, and nondistended. Extremities: No rash, lesions, or edema. No restriction of range of motion NEUROLOGICAL EXAMINATION: Alert Oriented to time, place and person. PERRL. EOMI. CN: no focal findings. Muscle tone: within normal. Muscle strength: 5 DTR: 2 Plantar reflex: Flexor response bilaterally Gait: at his baseline normal. Sensory exam: no abnormal findings. No cerebellar signs elicited. F-T-N test accurate. Objective Objective Vital Signs Date Time Temp Pulse Resp B/P Pulse Ox O2 Delivery O2 Flow Rate FiO2 11/08/16 13:21 98.0 94 20 159/72 94 Room Air 98.0 Intake and Output 11/08/16 07:00 Intake Total 1220 ml Balance 1220 ml Intake Oral 1220 ml # Voids 6 Vitals Signs Vitals VS - Last 72 Hours, by Label Date Time Temp Pulse Resp B/P Pulse Ox O2 Delivery O2 Flow Rate FiO2 11/08/16 13:21 98.0 94 20 159/72 94 Room Air 98.0 11/08/16 10:44 98.0 88 18 146/71 94 Room Air 98.0 11/08/16 08:00 Room Air 11/08/16 07:00 98.5 88 18 140/63 98 Room Air 98.5 11/08/16 03:19 98.3 81 16 145/65 94 Room Air 98.3 11/07/16 23:00 98.4 81 20 148/65 95 Room Air 98.4 11/07/16 20:00 Room Air 11/07/16 19:20 98.5 85 18 141/61 94 Room Air 98.5 11/07/16 15:00 98.0 85 18 125/57 94 Room Air 98.0 11/07/16 10:43 97.7 91 18 147/65 91 Room Air 97.7 11/07/16 09:23 81 154/70 11/07/16 09:22 81 154/70 11/07/16 08:00 Room Air 11/07/16 07:00 98.2 81 18 154/70 92 Room Air 98.2 Medication Medications Current Medications Acetaminophen (Tylenol) 650 mg HS PO ; Start 11/08/16 at 21:00 Atorvastatin Calcium (Lipitor) 40 mg DAILY PO ; Start 11/08/16 at 06:11 Cefazolin Sodium/ Sodium Chloride (Ancef/Iv Sodium Chloride 0.9% 500ml Bag) 500 ml @ 500 mls/hr 1X PERIOP ONCE IRR ; Start 11/08/16 at 08:00; Stop 11/08/16 at 08:59; Status DC Fentanyl Citrate (Fentanyl 2ml Vial) 25 mcg PRN Q5MIN PRN IV MILD PAIN; Start 11/08/16 at 07:00; Stop 11/08/16 at 18:00 Fentanyl Citrate (Fentanyl 2ml Vial) 50 mcg PRN Q5MIN PRN IV MODERATE PAIN; Start 11/08/16 at 07:00; Stop 11/08/16 at 18:00 Heparin Sodium (Porcine) 5000 unit/Lactated Ringer's 505 ml @ 505 mls/hr 1X PERIOP ONCE IRR ; Start 11/08/16 at 08:00; Stop 11/08/16 at 08:59; Status DC Hydromorphone HCl (Dilaudid) 0.5 mg PRN Q10MIN PRN IV SEVERE PAIN, Second choice; Start 11/08/16 at 07:00; Stop 11/08/16 at 18:00 Lactated Ringer's (Iv Lactated Ringers) 1,000 ml @ 30 mls/hr Q24H IV Last administered on 11/08/16t 13:47; Start 11/08/16 at 07:00; Stop 11/08/16 at 18:59 Lidocaine HCl 2 ml 1X PRN PRN ID IV START; Start 11/08/16 at 07:00; Stop at 18:00 Morphine Sulfate 1 mg 1 mg PRN Q10MIN PRN IV SEVERE PAIN; Start 11/08/16 at 07: 00; Stop 11/08/16 at 18:00 Prochlorperazine Edisylate (Compazine) 5 mg PACU PRN PRN IV NAUSEA; Start 11/08 at 07:00; Stop 11/08/16 at 18:00 Comment Review of Relevant I have reviewed the following items kiley (where applicable) has been applied. KEN ISAAC MD Nov 08, 2016 14:09
[2016-11-08] MEDS ORDERED: ROPIVacaine 0.5% PF 30 ML VIAL. ONE (14:37)
[2016-11-08] MEDS ORDERED: MIDAZOLAM HCL/PF 2 MG/2 ML VIAL. ONE (14:45)
--- NOTE | 2016-11-08 15:08 | PDOC ---
GENERAL General: vss and afebrile. awake and alert. for right carotid endarterectomy this pm. left sided numbness stable. answered questions re CEA. otherwise same. Problems: VITAL SIGNS Vital Signs: Vital Signs Date Time Temp Pulse Resp B/P Pulse Ox O2 Delivery O2 Flow Rate FiO2 11/08/16 13:21 98.0 94 20 159/72 94 Room Air 98.0 I & O I & O Intake and Output 11/08/16 07:00 Intake Total 1220 ml Balance 1220 ml Intake Oral 1220 ml # Voids 6 ALLERGIES Allergies: Allergies Coded Allergies Type Severity Reaction Last Updated Verified No Known Drug Allergies 01/14/15 No MEDS Medications: Current Medications Medications (Trade) Dose Ordered Sig/Damon Start Time Stop Time Status Last Admin Dose Admin Acetaminophen (Tylenol) 650 mg HS 11/08/16 21:00 Amlodipine Besylate (Norvasc) 5 mg DAILY 11/06/16 09:00 11/07/16 09:22 5 MG Atorvastatin Calcium (Lipitor) 40 mg DAILY 11/08/16 06:11 Cefazolin Sodium/ Sodium Chloride (Ancef/Iv Sodium Chloride 0.9% 500ml Bag) 500 ml @ 500 mls/hr 1X PERIOP ONCE 11/08/16 08:00 11/08/16 08:59 DC Celecoxib (Celebrex) 200 mg DAILY 11/07/16 09:00 11/07/16 09:22 200 MG Clopidogrel Bisulfate (Plavix) 75 mg DAILYWBKFT 11/07/16 08:00 11/07/16 08:00 DC Clopidogrel Bisulfate 75 mg 75 mg DAILYWBKFT 11/06/16 20:15 11/07/16 09:22 75 MG Fentanyl Citrate (Fentanyl 2ml Vial) 50 mcg PRN Q5MIN PRN 11/08/16 07:00 11/08/16 18:00 Heparin Sodium (Porcine) 5000 unit/Lactated Ringer's 505 ml @ 505 mls/hr 1X PERIOP ONCE 11/08/16 08:00 11/08/16 08:59 DC Hydromorphone HCl (Dilaudid) 0.5 mg PRN Q10MIN PRN 11/08/16 07:00 11/08/16 18:00 Lactated Ringer's (Iv Lactated Ringers) 1,000 ml @ 30 mls/hr Q24H 11/08/16 07:00 11/08/16 18:59 11/08/16 13:47 30 MLS/HR Levofloxacin (Levaquin) 500 mg DAILY06 11/07/16 09:30 11/11/16 12:00 11/08/16 06:19 500 MG Lidocaine HCl 2 ml 1X PRN PRN 11/08/16 07:00 11/08/16 18:00 Losartan Potassium (Cozaar) 50 mg DAILY 11/06/16 15:00 11/07/16 09:23 50 MG Midazolam HCl (Versed) 2 mg STK-MED ONCE 11/08/16 14:45 11/08/16 14:46 DC Morphine Sulfate 1 mg 1 mg PRN Q10MIN PRN 11/08/16 07:00 11/08/16 18:00 Prochlorperazine Edisylate (Compazine) 5 mg PACU PRN PRN 11/08/16 07:00 11/08/16 18:00 Rivaroxaban (Xarelto) 20 mg DAILYWSUP 11/06/16 17:00 11/07/16 10:43 DC Ropivacaine (Naropin 0.5%) 30 ml STK-MED ONCE 11/08/16 14:37 11/08/16 14:38 DC Vitamin E 400 unit DAILY 11/07/16 09:00 11/07/16 09:23 400 UNIT ARSENIO ENGLISH MD Nov 08, 2016 15:08
[2016-11-08] MEDS ORDERED: PROPOFOL 20 ML IV ONE ×3 (15:31)
[2016-11-08] MEDS ORDERED: LIDOCAINE 1% 20 ML VIAL. ONE (15:37)
[2016-11-08] MEDS ORDERED: SURGICEL FIBRILLAR 1X2 EACH. ONE (15:37)
[2016-11-08] MEDS ORDERED: CEFAZOLIN 2GM PREMIX 50 ML IV ONE (15:42)
[2016-11-08] MEDS ORDERED: HYDROCODONE/APAP 5/325MG TABLET. PO PRN (15:45)
[2016-11-08] MEDS ORDERED: LABETALOL 20 MG/4 ML DISP.SYRIN. IVP PRN (15:45)
[2016-11-08] MEDS ORDERED: GLYCOPYRROLATE 1 MG/5 ML VIAL. ONE (16:26)
[2016-11-08] MEDS ORDERED: SUCCINYLCHOLINE 200 MG/10 ML VIAL. ONE (16:28)
[2016-11-08] MEDS ORDERED: DEXAMETHASONE SOD PHOS 20 MG/5 ML VIAL. ONE (16:45)
[2016-11-08] MEDS ORDERED: FENTANYL PF 100 MCG/2 ML VIAL. ONE ×3 (16:48→18:32)
[2016-11-08] MEDS ORDERED: ONDANSETRON PF 4 MG/2 ML VIAL. ONE (16:49)
[2016-11-08] MEDS ORDERED: FAMOTIDINE 20 MG/2 ML VIAL ONE (16:49)
[2016-11-08] MEDS ORDERED: PHENYLEPHRINE in 0.9% NACL PF 1 MG/10 ML DISP.SYRIN. IV ONE (16:57)
--- NOTE | 2016-11-08 18:11 | PDOC4 ---
Operative Note Operative Note Op note dictated Dx: 1. right carotid stenosis, symptomatic OP: 1. right carotid endarterectomy with bovine patch angioplasty, shunt utilized Surg: Maryam asst: FLOR Dos Santos GOT (converted from regional with sedation due to airway problems and generalized thrashing around) to rr in sat. cond. CLARE DUKE II, MD Nov 08, 2016 18:11
[2016-11-08] MEDS ORDERED: PROCHLORPERAZINE 10 MG/2 ML VIAL. ONE (18:49)
[2016-11-08] MEDS: FENTANYL PF 100 MCG/2 ML VIAL. IV PRN ×2 (18:53→19:10)
[2016-11-08 19:10] VITALS: BP 128/58
[2016-11-08] MEDS: ACETAMINOPHEN 325 MG TABLET. PO SCH (21:20)
[2016-11-08 23:05] VITALS: BP 102/38
--- NOTE | 2016-11-08 23:39 | OP ---
DATE OF SURGERY: 11/08/2016 PREOPERATIVE DIAGNOSIS: Right carotid stenosis, symptomatic with history of small right hemispheric infarct. POSTOPERATIVE DIAGNOSIS: Right carotid stenosis, symptomatic with history of small right hemispheric infarct. OPERATION PERFORMED: Right carotid endarterectomy with bovine patch angiography. SURGEON: Clare Francisco M.D. CONSUMER LENDER: UMER Valdez. ANESTHESIA: General anesthetic. ESTIMATED BLOOD LOSS: 50 mL. DRAINS: Carlton-Welsh. SPECIMENS: Hemorrhagic plaque. INDICATIONS: This is a 76-year-old gentleman who had a small right hemispheric infarct due to an embolic event from an ulcerated and necrotic right internal carotid origin stenosis. The patient had issues with regional anesthetic with obstruction of his airway and began thrashing around, therefore he was converted to a general anesthetic during the procedure. For this reason, a shunt was utilized. DESCRIPTION OF PROCEDURE: After a cervical block was administered, the right neck was prepped and draped in the usual manner. An incision was made along the anterior border of the sternocleidomastoid muscle. The common carotid artery was palpated and was dissected. At this point in time, the patient began to have some airway issues and began thrashing around. Anesthesia then intubated the patient. The common carotid artery was encircled with an umbilical tape. Further dissection was then carried out distally. The bifurcation was relatively low in the neck, was carefully dissected and then a vessel loop was placed around the origin of the external carotid and superior thyroid arteries. The internal carotid was then dissected distally. It was a little bit redundant, soft and blue at about 2-3 cm from the bifurcation. A vessel loop was placed around to the vessel at this location. The patient was given 5000 units of heparin and after 3 minutes circulation, the external common and internal carotid arteries were occluded. An arteriotomy was made in the common carotid artery extending pass the ____ to the internal carotid artery. A #10 straight ____ was then placed first proximally flushed and then placed distally into the internal carotid artery. Time for placement of the shunt was a minute. Following the shunt placement, a meticulous endarterectomy was performed of the common external and internal carotid arteries. Care was taken to remove all loose strands. Loupe magnification with illumination was utilized. A ____ endpoint was obtained distally on the internal carotid. A bovine patch was then used to close the arteriotomy and to reduce the amount of very mild internal carotid artery redundancy. The 0.8 cm wide patch was trimmed to approximately 4 mm and sutured into place using 6-0 Prolene, 2 suture technique. Prior to completing the patch closure, the shunt was removed first distally, flushed, and then removed proximally and the common carotid artery was clamped. Heparinized saline was injected into the endarterectomized base. The patch closure was then completed and flow restored first to the external carotid artery for several minutes and then into the internal carotid artery. No protamine was given. A ____ perforated drain was placed within the wound's base and brought out through a separate small incision. The wound was then approximated with 2-0 Vicryl, the skin with 4-0 Vicryl and Steri-Strips were applied. The patient tolerated the procedures well and was taken to the recovery room in satisfactory condition. CLARE FRANCISCO MD DR: NAYE/analisa JOB#: [id number] / [id number]
[2016-11-09] VITALS (7 sets, daily range): BP systolic 104–149; BP diastolic 40–47
[2016-11-09] MEDS: LEVOFLOXACIN 500 MG TABLET PO SCH (06:36)
[2016-11-09 06:52] LABS: BASO # 0.1 x10^3/uL (0.0-0.2); BASO % 0 % (0-3); EOS % 0 % (0-3); HEMOGLOBIN 11.7 g/dL (13.0-17.5); LYMPH # 0.8 x10^3/uL (1.0-4.8); LYMPH % 3 % (24-48); MEAN CORPUSCULAR HEMOGLOBIN 28 pg (25-35); MEAN CORPUSCULAR HGB CONC 32 g/dL (31-37); MEAN CORPUSCULAR VOLUME 87 fL (79-100); MONO % 17 % (0-9); NEUT % 80 % (31-73); PLATELET COUNT 212 x10^3/uL (140-400); RED BLOOD COUNT 4.15 x10^6/uL (4.30-5.70); RED CELL DISTRIBUTION WIDTH 20.7 % (11.5-14.5); WHITE BLOOD COUNT 29.6 x10^3/uL (4.0-11.0)
[2016-11-09] MEDS: CLOPIDOGREL BISULFATE 75 MG TABLET PO SCH (08:40)
[2016-11-09] MEDS: ATORVASTATIN CALCIUM 40 MG TABLET. PO SCH (08:41)
[2016-11-09] MEDS: LOSARTAN POTASSIUM 50 MG TABLET. PO SCH (08:41)
[2016-11-09] MEDS: CELECOXIB 200 MG CAPSULE. PO SCH (08:41)
[2016-11-09] MEDS: VITAMIN E 200 UNIT CAPSULE. PO SCH (08:42)
[2016-11-09] MEDS: AMLODIPINE BESYLATE 5 MG TABLET. PO SCH (08:42)
[2016-11-09 09:03] LABS: PLT ESTIMATE ADEQUATE (ADEQUATE)
[2016-11-09 09:04] LABS: ANISOCYTOSIS PRESENT; TOXIC GRANULATION PRESENT
--- NOTE | 2016-11-09 15:22 | PDOC ---
PROGRESS NOTES Assessment Assessment Acute small right thalamus infarct. Left side numbness. Right ICA stenosis > 70%. HTN HLD CAD, s/p CABG PE, Hx. DVT. 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 RECOMMENDATIONS/PLAN: He was treated with Xarelto 20 mg daily but discontinued on 11/06 and Plavix since. Hold due to right carotid A endarterectomy on 11/08/16. Continue Lipitor 40 mg HS. Add Neurontin 100 mg tid with titration up. Vascular Surgery consulted. Discussed with him and his in detail at bedside on 11/07. Brain MRI performed on 11/06 stroke as above. Carotid A US + Doppler showed high grade stenosis in right ICA. Echo + Bubble study showed no significant abnormal findings. Fasting lipids were WNL. HISTORY OF THE PRESENT ILLNESS: 76-y-old male patient with Hx of a stroke in 2001 with right side weakness but recovered well after stroke. He wake up in the morning on 11/06 feeling numbness in his left side face, UE and LE extremities. The onset time of his symptoms was unknown. he stated no motor or cranial nerve involvement. No motor deficits, but still has sensory symptoms on the left side UE and LE on 11/08. He is doing fine post right carotid A endarterectomy on 11/09. PAST MEDICAL HISTORY: Please see above. PAST SURGERY HISTORY: Cataract surgery Tonsillectomy Adenoidectomy CABG Hernia Repair ALLERGY: Reviewed. MEDICATIONS: Refer to [facility] FAMILY HISTORY: Non contributory. SOCIAL HISTORY: Lives at home. Denies current smoking, drinking, and illicit drug use. He smoked in past but quit smoking in 1990. REVIEW OF SYSTEMS: Constitutional: No malnutrition, weight loss, cachexia. Head: No recent traumatic brain or head injury. Skin: No edema, or rash. Ear: No infection. Eyes: No vision loss or color blindness. Nose: No bleeding or purulent discharges. Hearing: No hearing decrease. Neck: No injury. Cardiac: CAD, s/p CABG, HTN, HLD. Pulmonary: No COPD. GI: No GI ulcer, GI bleeding. Urinary/genital: No dysuria, hematuria, incontinence, urinary retention. Endocrinologic: No cousin face, craniofacial dysmorphism, polydactyly.. Skeletomuscular: No muscular atrophy, deformity. Neurological: see HP. Psychiatric: Denies drug use/abuse. Otherwise, not [id number] review of systems. PHYSICAL EXAMINATION: General appearance is in subacute distress. HEENT: Normocephalic and nontraumatic. Eyes, nose, ears, and throat are unremarkable. Neck is supple. No lymphadenopathy. No crepitus. Cardiovascular: S1, S2, regular rate and rhythm. Pulmonary: Clear to auscultation bilaterally. Abdomen: Bowel sounds are positive. Abdomen is soft, nontender, and nondistended. Extremities: No rash, lesions, or edema. No restriction of range of motion NEUROLOGICAL EXAMINATION: Alert Oriented to time, place and person. PERRL. EOMI. CN: no focal findings. Muscle tone: within normal. Muscle strength: 5 DTR: 2 Plantar reflex: Flexor response bilaterally Gait: at his baseline normal. Sensory exam: no abnormal findings. No cerebellar signs elicited. F-T-N test accurate. Objective Objective Vital Signs Date Time Temp Pulse Resp B/P Pulse Ox O2 Delivery O2 Flow Rate FiO2 11/09/16 14:13 97.6 80 22 107/46 90 Room Air 97.6 11/09/16 03:10 4.0 Intake and Output 11/09/16 07:00 Intake Total 1000 ml Output Total 315 ml Balance 685 ml IV Total 1000 ml Output Urine Total 0 ml Drainage Total 15 ml Estimated Blood Loss 300 ml Vitals Signs Vitals VS - Last 72 Hours, by Label Date Time Temp Pulse Resp B/P Pulse Ox O2 Delivery O2 Flow Rate FiO2 11/09/16 14:13 97.6 80 22 107/46 90 Room Air 97.6 11/09/16 10:54 97.3 81 21 104/40 90 Room Air 97.3 11/09/16 08:42 64 115/47 11/09/16 08:41 64 115/47 11/09/16 08:00 Room Air 11/09/16 07:30 98.1 64 20 115/47 91 Room Air 98.1 11/09/16 03:10 97.9 74 20 111/43 96 Nasal Cannula 4.0 97.9 11/08/16 23:05 98.1 68 26 102/38 93 Nasal Cannula 4.0 98.1 11/08/16 20:00 Nasal Cannula 2.0 11/08/16 19:10 98.4 56 24 128/58 94 Nasal Cannula 4.0 98.4 11/08/16 19:10 15 95 Nasal Cannula 4.0 11/08/16 18:56 97.7 79 12 138/58 94 Nasal Cannula 4 97.7 11/08/16 18:53 15 94 Simple Mask 11/08/16 18:41 97.7 79 12 144/68 94 Nasal Cannula 4 97.7 11/08/16 18:26 97.7 92 15 134/68 95 Nasal Cannula 97.7 11/08/16 18:11 97.7 88 15 128/58 95 Simple Mask 10 97.7 11/08/16 18:11 Room Air 11/08/16 13:21 98.0 94 20 159/72 94 Room Air 98.0 11/08/16 10:44 98.0 88 18 146/71 94 Room Air 98.0 11/08/16 08:00 Room Air 11/08/16 07:00 98.5 88 18 140/63 98 Room Air 98.5 Laboratory Laboratory Laboratory Tests Test 11/09/16 05:00 White Blood Count 29.6x10^3/uL (4.0-11.0) Red Blood Count 4.15x10^6/uL (4.30-5.70) Hemoglobin 11.7g/dL (13.0-17.5) Hematocrit 36.0% (39.0-53.0) Mean Corpuscular Volume 87fL (79-100) Mean Corpuscular Hemoglobin 28pg (25-35) Mean Corpuscular Hemoglobin Concent 32g/dL (31-37) Red Cell Distribution Width 20.7% (11.5-14.5) Platelet Count 212x10^3/uL (140-400) Neutrophils (%) (Auto) 80% (31-73) Lymphocytes (%) (Auto) 3% (24-48) Monocytes (%) (Auto) 17% (0-9) Eosinophils (%) (Auto) 0% (0-3) Basophils (%) (Auto) 0% (0-3) Neutrophils # (Auto) 23.8x10^3uL (1.8-7.7) Lymphocytes # (Auto) 0.8x10^3/uL (1.0-4.8) Monocytes # (Auto) 4.9x10^3/uL (0.0-1.1) Eosinophils # (Auto) 0.0x10^3/uL (0.0-0.7) Basophils # (Auto) 0.1x10^3/uL (0.0-0.2) Segmented Neutrophils % 66% (35-66) Band Neutrophils % 14% (0-9) Lymphocytes % 6% (24-48) Monocytes % 13% (0-10) Metamyelocytes % 1% (0-0) Toxic Granulation Present Platelet Estimate Adequate (ADEQUATE) Large Platelets Present Anisocytosis Present Medication Medications Current Medications Acetaminophen 650 mg 650 mg HS PO Last administered on 11/08/16 21:20; Start 11/08/16 at 21:00 Acetaminophen/ Hydrocodone Bitart (Lortab 5/325) 1 tab PRN Q4HRS PRN PO PAIN; Start 11/08/16 at 15:45 Amlodipine Besylate (Norvasc) 5 mg DAILY PO Last administered on 11/09/16 08: 42; Start 11/09/16 at 09:00 Cefazolin Sodium/ Dextrose (Ancef 2gm Premix) 50 ml @ As Directed STK-MED ONCE IV ; Start 11/08/16 at 15:42; Stop 11/08/16 at 15:44; Status DC Celecoxib (Celebrex) 200 mg DAILY PO Last administered on 11/09/16 08:41; Start 11/09/16 at 09:00 Cellulose 1 each STK-MED ONCE .ROUTE Last administered on 11/08/16 16:04; Start 11/08/16 at 15:37; Stop 11/08/16 at 15:38; Status DC Dexamethasone Sodium Phosphate (Decadron) 20 mg STK-MED ONCE .ROUTE ; Start at 16:45; Stop 11/08/16 at 16:46; Status DC Famotidine (Pepcid) 20 mg STK-MED ONCE .ROUTE ; Start 11/08/16 at 16:49; Stop at 16:50; Status DC Fentanyl Citrate (Fentanyl 2ml Vial) 50 mcg PRN Q5MIN PRN IV MODERATE PAIN Last administered on 11/08/16 19:10; Start 11/08/16 at 19:00; Stop 11/08/16 at 22:00; Status DC Fentanyl Citrate (Fentanyl 2ml Vial) 100 mcg STK-MED ONCE .ROUTE ; Start at 16:48; Stop 11/08/16 at 16:49; Status DC Fentanyl Citrate (Fentanyl 2ml Vial) 100 mcg STK-MED ONCE .ROUTE ; Start at 17:33; Stop 11/08/16 at 17:34; Status DC Fentanyl Citrate (Fentanyl 2ml Vial) 100 mcg STK-MED ONCE .ROUTE ; Start at 18:32; Stop 11/08/16 at 18:33; Status DC Glycopyrrolate (Robinul) 1 mg STK-MED ONCE .ROUTE ; Start 11/08/16 at 16:26; Stop 11/08/16 at 16:27; Status DC Labetalol HCl (Normodyne) 10 mg PRN Q2HR PRN IVP HYPERTENSION, SEE COMMENTS; Start 11/08/16 at 15:45 Lidocaine HCl 20 ml 20 ml STK-MED ONCE .ROUTE Last administered on 11/08/16 16 :04; Start 11/08/16 at 15:37; Stop 11/08/16 at 15:38; Status DC Morphine Sulfate 1 mg PRN Q10MIN PRN IV SEVERE PAIN; Start 11/08/16 at 19:00; Stop 11/08/16 at 22:00; Status DC Morphine Sulfate 2 mg PRN Q2HR PRN IV PAIN; Start 11/08/16 at 15:45 Ondansetron HCl (Zofran) 4 mg STK-MED ONCE .ROUTE ; Start 11/08/16 at 16:49; Stop 11/08/16 at 16:50; Status DC Phenylephrine HCl 1 mg STK-MED ONCE IV ; Start 11/08/16 at 16:57; Stop 11/08/16 at 16:58; Status DC Prochlorperazine Edisylate (Compazine) 5 mg PACU PRN PRN IV NAUSEA Last administered on 11/08/16 18:53; Start 11/08/16 at 19:00; Stop 11/08/16 at 22:00 ; Status DC Prochlorperazine Edisylate (Compazine) 10 mg STK-MED ONCE .ROUTE ; Start at 18:49; Stop 11/08/16 at 18:50; Status DC Propofol 20 ml @ As Directed STK-MED ONCE IV ; Start 11/08/16 at 15:31; Stop at 15:32; Status DC Propofol 20 ml @ As Directed STK-MED ONCE IV ; Start 11/08/16 at 15:31; Stop at 15:32; Status DC Propofol (Diprivan) 20 ml @ As Directed STK-MED ONCE IV ; Start 11/08/16 at 15: 31; Stop 11/08/16 at 15:32; Status DC Succinylcholine Chloride (Anectine) 200 mg STK-MED ONCE .ROUTE ; Start 11/08/16 at 16:28; Stop 11/08/16 at 16:29; Status DC Comment Review of Relevant I have reviewed the following items kiley (where applicable) has been applied. KEN ISAAC MD Nov 09, 2016 15:22
[2016-11-09] MEDS: GABAPENTIN 100 MG CAPSULE. PO SCH ×2 (16:12→21:14)
--- NOTE | 2016-11-09 16:13 | PDOC ---
Provider Note Provider Note VASCULAR POD#1 s/p right CEA VSS neuro intact dressing removed ,deborah out Incision OK IMP doing well PLAN ok for discharge f/u with Dr Francisco in 2-3 weeks JAIMIE WILSON MD Nov 09, 2016 16:13
--- NOTE | 2016-11-09 20:28 | PDOC ---
GENERAL General: seen/examined this am. neuro is stable. still has drain cea site. chest clear and heart regular. anticoagulation per neurology. home per surgery. wbc up to 29K,?etiology. ask for ID opinion on same. Problems: VITAL SIGNS Vital Signs: Vital Signs Date Time Temp Pulse Resp B/P Pulse Ox O2 Delivery O2 Flow Rate FiO2 11/09/16 19:15 97.7 79 18 118/43 92 Room Air 97.7 11/09/16 03:10 4.0 I & O I & O Intake and Output 11/09/16 07:00 Intake Total 1000 ml Output Total 315 ml Balance 685 ml IV Total 1000 ml Output Urine Total 0 ml Drainage Total 15 ml Estimated Blood Loss 300 ml ALLERGIES Allergies: Allergies Coded Allergies Type Severity Reaction Last Updated Verified No Known Drug Allergies 01/14/15 No MEDS Medications: Current Medications Medications (Trade) Dose Ordered Sig/Damon Start Time Stop Time Status Last Admin Dose Admin Acetaminophen (Tylenol) 650 mg HS 11/08/16 21:00 11/08/16 21:20 650 MG Acetaminophen/ Hydrocodone Bitart (Lortab 5/325) 1 tab PRN Q4HRS PRN 11/08/16 15:45 Amlodipine Besylate (Norvasc) 5 mg DAILY 11/09/16 09:00 11/09/16 08:42 5 MG Atorvastatin Calcium (Lipitor) 40 mg DAILY 11/08/16 06:11 11/09/16 08:41 40 MG Cefazolin Sodium/ Dextrose (Ancef 2gm Premix) 50 ml @ As Directed STK-MED ONCE 11/08/16 15:42 11/08/16 15:44 DC Cefazolin Sodium/ Sodium Chloride (Ancef/Iv Sodium Chloride 0.9% 500ml Bag) 500 ml @ 500 mls/hr 1X PERIOP ONCE 11/08/16 08:00 11/08/16 08:59 DC 11/08/16 16:04 Celecoxib (Celebrex) 200 mg DAILY 11/09/16 09:00 11/09/16 08:41 200 MG Cellulose 1 each STK-MED ONCE 11/08/16 15:37 11/08/16 15:38 DC 11/08/16 16:04 1 EACH Clopidogrel Bisulfate (Plavix) 75 mg DAILYWBKFT 11/07/16 08:00 11/07/16 08:00 DC Clopidogrel Bisulfate 75 mg 75 mg DAILYWBKFT 11/06/16 20:15 11/09/16 08:40 75 MG Dexamethasone Sodium Phosphate (Decadron) 20 mg STK-MED ONCE 11/08/16 16:45 11/08/16 16:46 DC Famotidine (Pepcid) 20 mg STK-MED ONCE 11/08/16 16:49 11/08/16 16:50 DC Fentanyl Citrate (Fentanyl 2ml Vial) 50 mcg PRN Q5MIN PRN 11/08/16 19:00 11/08/16 22:00 DC 11/08/16 19:10 50 MCG Gabapentin (Neurontin) 100 mg TID 11/09/16 15:30 11/09/16 16:12 100 MG Glycopyrrolate (Robinul) 1 mg STK-MED ONCE 11/08/16 16:26 11/08/16 16:27 DC Heparin Sodium (Porcine) 5000 unit/Lactated Ringer's 505 ml @ 505 mls/hr 1X PERIOP ONCE 11/08/16 08:00 11/08/16 08:59 DC 11/08/16 16:04 Hydromorphone HCl (Dilaudid) 0.5 mg PRN Q10MIN PRN 11/08/16 07:00 11/08/16 18:14 DC Labetalol HCl (Normodyne) 10 mg PRN Q2HR PRN 11/08/16 15:45 Lactated Ringer's (Iv Lactated Ringers) 1,000 ml @ 30 mls/hr Q24H 11/08/16 07:00 11/08/16 18:59 DC 11/08/16 13:47 30 MLS/HR Levofloxacin (Levaquin) 500 mg DAILY06 11/07/16 09:30 11/11/16 12:00 11/09/16 06:36 500 MG Lidocaine HCl 2 ml 1X PRN PRN 11/08/16 07:00 11/08/16 18:14 DC Lidocaine HCl 20 ml 20 ml STK-MED ONCE 11/08/16 15:37 11/08/16 15:38 DC 11/08/16 16:04 8 ML Losartan Potassium (Cozaar) 50 mg DAILY 11/06/16 15:00 11/09/16 08:41 50 MG Midazolam HCl 2 mg 2 mg STK-MED ONCE 11/08/16 14:45 11/08/16 14:46 DC Morphine Sulfate 1 mg PRN Q10MIN PRN 11/08/16 19:00 11/08/16 22:00 DC Morphine Sulfate 1 mg 1 mg PRN Q10MIN PRN 11/08/16 07:00 11/08/16 18:14 DC Ondansetron HCl (Zofran) 4 mg STK-MED ONCE 11/08/16 16:49 11/08/16 16:50 DC Phenylephrine HCl 1 mg STK-MED ONCE 11/08/16 16:57 11/08/16 16:58 DC Prochlorperazine Edisylate (Compazine) 10 mg STK-MED ONCE 11/08/16 18:49 11/08/16 18:50 DC Propofol (Diprivan) 20 ml @ As Directed STK-MED ONCE 11/08/16 15:31 11/08/16 15:32 DC Rivaroxaban (Xarelto) 20 mg DAILYWSUP 11/06/16 17:00 11/07/16 10:43 DC Ropivacaine (Naropin 0.5%) 30 ml STK-MED ONCE 11/08/16 14:37 11/08/16 14:38 DC Succinylcholine Chloride (Anectine) 200 mg STK-MED ONCE 11/08/16 16:28 11/08/16 16:29 DC Vitamin E 400 unit DAILY 11/07/16 09:00 11/09/16 08:42 400 UNIT LAB Lab: Laboratory Tests Test 11/09/16 05:00 White Blood Count 29.6x10^3/uL (4.0-11.0) Red Blood Count 4.15x10^6/uL (4.30-5.70) Hemoglobin 11.7g/dL (13.0-17.5) Hematocrit 36.0% (39.0-53.0) Mean Corpuscular Volume 87fL (79-100) Mean Corpuscular Hemoglobin 28pg (25-35) Mean Corpuscular Hemoglobin Concent 32g/dL (31-37) Red Cell Distribution Width 20.7% (11.5-14.5) Platelet Count 212x10^3/uL (140-400) Neutrophils (%) (Auto) 80% (31-73) Lymphocytes (%) (Auto) 3% (24-48) Monocytes (%) (Auto) 17% (0-9) Eosinophils (%) (Auto) 0% (0-3) Basophils (%) (Auto) 0% (0-3) Neutrophils # (Auto) 23.8x10^3uL (1.8-7.7) Lymphocytes # (Auto) 0.8x10^3/uL (1.0-4.8) Monocytes # (Auto) 4.9x10^3/uL (0.0-1.1) Eosinophils # (Auto) 0.0x10^3/uL (0.0-0.7) Basophils # (Auto) 0.1x10^3/uL (0.0-0.2) Segmented Neutrophils % 66% (35-66) Band Neutrophils % 14% (0-9) Lymphocytes % 6% (24-48) Monocytes % 13% (0-10) Metamyelocytes % 1% (0-0) Toxic Granulation Present Platelet Estimate Adequate (ADEQUATE) Large Platelets Present Anisocytosis Present APPL,ARSENIO Livingston MD Nov 09, 2016 20:28
[2016-11-09] MEDS: ACETAMINOPHEN 325 MG TABLET. PO SCH (21:14)
--- NOTE | 2016-11-09 21:29 | RAD ---
PROCEDURE CT Head and CT cervical spine without intravenous contrast. HISTORY Fall in bathroom at 1800 hours. Recent acute right thalamic lacunar infarction. TECHNIQUE Axial images are obtained of the head from the skull base through the vertex without IV contrast Noncontrast CT of the cervical spine was performed. Axial, sagittal, and coronal reconstructions were obtained. Exposure: One or more of the following individualized dose reduction techniques were utilized for this examination: 1. Automated exposure control. 2. Adjustment of the mA and/or kV according to patient size. 3. Use of iterative reconstruction technique. COMPARISON None. FINDINGS CT head: The ventricles are appropriate in size, shape, and location for the patient's age.No obvious intracranial mass, mass-effect, midline shift, or hemorrhage is identified.Basilar cisterns are patent. Low-attenuation involving the right thalamus, compatible with a subacute lacunar infarction, is seen. The medial right occipital lobe demonstrates a focus of low attenuation measuring 2.5 centimeters in maximum dimension. This is asymmetric from the contralateral side and no convincing correlate is seen on the comparison MRI. Consequently, this is thought to be interval development of infarction. Bone windows demonstrate no acute calvarial abnormality.The visualized paranasal sinuses appear clear. CT cervical spine: No acute fracture or acute malalignment identified. No prevertebral soft tissue swelling is seen. Multilevel degeneration is present with facet and uncovertebral hypertrophy as well as degenerative disc disease. 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 IMPRESSION 1. There is a focus of low attenuation involving the medial right occipital lobe measuring 2.5 centimeters in maximum dimension. This is thought to be interval development from the comparison MRI, and is compatible with acute versus early subacute infarction. These results were discussed with patient's nurse, Kathy, at 2128 hours. 2. Known subacute right thalamic lacunar infarction. 3. No acute osseous traumatic injury identified in the cervical spine. 4. Cervical degeneration. 5. Soft tissue gas involving the right neck, may relate to recent intervention. Electronically signed by: Washington Burnham MD (Nov 09, 2016 21:28:25)
[2016-11-09] MEDS ORDERED: ASPIRIN 325 MG TABLET PO ONE (22:30)
[2016-11-10 03:00] VITALS: BP 140/51
[2016-11-10] MEDS: LEVOFLOXACIN 500 MG TABLET PO SCH (05:59)
[2016-11-10 07:30] VITALS: BP 135/52
[2016-11-10] MEDS ORDERED: LOSARTAN POTASSIUM 50 MG TABLET. ONE (07:30)
--- NOTE | 2016-11-10 07:55 | RAD ---
EXAM: Lumbar spine, single view. HISTORY: Fall. COMPARISON: None. FINDINGS: A frontal view of the lumbar spine is obtained. There is degenerative endplate remodeling at all levels. There is facet arthropathy predominantly at the lumbosacral junction. There is partial transition of median sternotomy wires. There is an IVC filter in expected position. There are punctate densities overlying the right renal shadow, possibly artifactual or due to nephrolithiasis. IMPRESSION: 1. Multilevel degenerative change within the lumbar spine. 2. Note is made that evaluation for subtle compression fractures and listhesis is limited in the absence of a lateral radiograph.
[2016-11-10] MEDS: CLOPIDOGREL BISULFATE 75 MG TABLET PO SCH (08:02)
[2016-11-10] MEDS: VITAMIN E 200 UNIT CAPSULE. PO SCH (08:02)
[2016-11-10] MEDS: CELECOXIB 200 MG CAPSULE. PO SCH (08:02)
[2016-11-10] MEDS: ASPIRIN 325 MG TABLET PO SCH (08:02)
[2016-11-10] MEDS: GABAPENTIN 100 MG CAPSULE. PO SCH ×3 (08:03→20:48)
[2016-11-10] MEDS: AMLODIPINE BESYLATE 5 MG TABLET. PO SCH (08:03)
[2016-11-10] MEDS: LOSARTAN POTASSIUM 50 MG TABLET. PO SCH (08:03)
--- NOTE | 2016-11-10 09:32 | PDOC ---
Provider Note Provider Note Vascular Surgery: POD#1 s/p R CEA The patient is doing well, he denies any neck pain. VSS Neuro intact incision - clean and intact Plan: - Ok for discharge from vascular perspective - continue aspirin / plavix / statin - f/u with Dr. Maryam stewart 2 weeks - PT to evaluate patient for balance issues - ID consult for leukocytosis, on levaquin. No erythema or discharge that would suggest neck site cause of leukocytosis CLEO SANTIAGO MD Nov 10, 2016 09:32
--- NOTE | 2016-11-10 10:12 | PDOC ---
GENERAL General: vss and afebrile. neck incision looks ok. chest clear and heart regular. fell in bathroom last night and dc held. patient thinks walking ok but would disagree. will ask therapy opinion on safety for dc vs to resort for snu. some paralumbar tenderness after fall last pm. Problems: VITAL SIGNS Vital Signs: Vital Signs Date Time Temp Pulse Resp B/P Pulse Ox O2 Delivery O2 Flow Rate FiO2 11/10/16 08:03 73 140/51 11/10/16 08:00 Room Air 11/10/16 07:30 98.2 21 94 98.2 I & O I & O Intake and Output 11/10/16 07:00 Intake Total 1200 ml Output Total 0 ml Balance 1200 ml Intake Oral 1200 ml Output Urine Total 0 ml # Voids 5 ALLERGIES Allergies: Allergies Coded Allergies Type Severity Reaction Last Updated Verified No Known Drug Allergies 01/14/15 No MEDS Medications: Current Medications Medications (Trade) Dose Ordered Sig/Damon Start Time Stop Time Status Last Admin Dose Admin Acetaminophen (Tylenol) 650 mg HS 11/08/16 21:00 11/09/16 21:14 650 MG Acetaminophen/ Hydrocodone Bitart (Lortab 5/325) 1 tab PRN Q4HRS PRN 11/08/16 15:45 Amlodipine Besylate (Norvasc) 5 mg DAILY 11/09/16 09:00 11/10/16 08:03 5 MG Aspirin (Scottie Aspirin) 325 mg DAILYWBKFT 11/10/16 08:00 11/10/16 08:02 325 MG Atorvastatin Calcium (Lipitor) 40 mg QHS 11/10/16 21:00 Cefazolin Sodium/ Dextrose (Ancef 2gm Premix) 50 ml @ As Directed STK-MED ONCE 11/08/16 15:42 11/08/16 15:44 DC Cefazolin Sodium/ Sodium Chloride (Ancef/Iv Sodium Chloride 0.9% 500ml Bag) 500 ml @ 500 mls/hr 1X PERIOP ONCE 11/08/16 08:00 11/08/16 08:59 DC 11/08/16 16:04 Celecoxib (Celebrex) 200 mg DAILY 11/09/16 09:00 11/10/16 08:02 200 MG Cellulose 1 each STK-MED ONCE 11/08/16 15:37 11/08/16 15:38 DC 11/08/16 16:04 1 EACH Clopidogrel Bisulfate (Plavix) 75 mg DAILYWBKFT 11/07/16 08:00 11/07/16 08:00 DC Clopidogrel Bisulfate 75 mg 75 mg DAILYWBKFT 11/06/16 20:15 11/10/16 08:02 75 MG Dexamethasone Sodium Phosphate (Decadron) 20 mg STK-MED ONCE 11/08/16 16:45 11/08/16 16:46 DC Famotidine (Pepcid) 20 mg STK-MED ONCE 11/08/16 16:49 11/08/16 16:50 DC Fentanyl Citrate (Fentanyl 2ml Vial) 50 mcg PRN Q5MIN PRN 11/08/16 19:00 11/08/16 22:00 DC 11/08/16 19:10 50 MCG Gabapentin (Neurontin) 100 mg TID 11/09/16 15:30 11/10/16 08:03 100 MG Glycopyrrolate (Robinul) 1 mg STK-MED ONCE 11/08/16 16:26 11/08/16 16:27 DC Heparin Sodium (Porcine) 5000 unit/Lactated Ringer's 505 ml @ 505 mls/hr 1X PERIOP ONCE 11/08/16 08:00 11/08/16 08:59 DC 11/08/16 16:04 Hydromorphone HCl (Dilaudid) 0.5 mg PRN Q10MIN PRN 11/08/16 07:00 11/08/16 18:14 DC Labetalol HCl (Normodyne) 10 mg PRN Q2HR PRN 11/08/16 15:45 Lactated Ringer's (Iv Lactated Ringers) 1,000 ml @ 30 mls/hr Q24H 11/08/16 07:00 11/08/16 18:59 DC 11/08/16 13:47 30 MLS/HR Levofloxacin (Levaquin) 500 mg DAILY06 11/07/16 09:30 11/11/16 12:00 11/10/16 05:59 500 MG Lidocaine HCl 2 ml 1X PRN PRN 11/08/16 07:00 11/08/16 18:14 DC Lidocaine HCl 20 ml 20 ml STK-MED ONCE 11/08/16 15:37 11/08/16 15:38 DC 11/08/16 16:04 8 ML Losartan Potassium (Cozaar) 50 mg STK-MED ONCE 11/10/16 07:30 11/10/16 07:31 DC Midazolam HCl 2 mg 2 mg STK-MED ONCE 11/08/16 14:45 11/08/16 14:46 DC Morphine Sulfate 1 mg PRN Q10MIN PRN 11/08/16 19:00 11/08/16 22:00 DC Morphine Sulfate 1 mg 1 mg PRN Q10MIN PRN 11/08/16 07:00 11/08/16 18:14 DC Ondansetron HCl (Zofran) 4 mg STK-MED ONCE 11/08/16 16:49 11/08/16 16:50 DC Phenylephrine HCl 1 mg STK-MED ONCE 11/08/16 16:57 11/08/16 16:58 DC Prochlorperazine Edisylate (Compazine) 10 mg STK-MED ONCE 11/08/16 18:49 11/08/16 18:50 DC Propofol (Diprivan) 20 ml @ As Directed STK-MED ONCE 11/08/16 15:31 11/08/16 15:32 DC Rivaroxaban (Xarelto) 20 mg DAILYWSUP 11/06/16 17:00 11/07/16 10:43 DC Ropivacaine (Naropin 0.5%) 30 ml STK-MED ONCE 11/08/16 14:37 11/08/16 14:38 DC Succinylcholine Chloride (Anectine) 200 mg STK-MED ONCE 11/08/16 16:28 11/08/16 16:29 DC Vitamin E 400 unit DAILY 11/07/16 09:00 11/10/16 08:02 400 UNIT ARSENIO ENGLISH MD Nov 10, 2016 10:12
--- NOTE | 2016-11-10 11:02 | PDOC ---
Infectious Disease Note ROS ROS Vital Sign Vital Signs Vital Signs Date Time Temp Pulse Resp B/P Pulse Ox O2 Delivery O2 Flow Rate FiO2 11/10/16 08:03 73 140/51 11/10/16 08:00 Room Air 11/10/16 07:30 98.2 21 94 98.2 Objective Assessment Leukocytosis, likely reactive (acute infarct, steroids, procedure, constipation) . Af and looks well. Appetite is good Sinus congestion, better - has had 3 rounds of outpat abx per -3rd round abx past 3 weeks per pt Constipation. No BM 4 days Carotid stenosis. s/p right endarterectomy, 11/08 Acute right CVA Dependent rubor Plan Plan of Care Clinically doing well, Levaquin for now but wean off Bowel regime UA pending Repeat CBC in am PT/OT D/w Thank you [id number] Attending Co-Sign Attending Co-Sign The patient was seen and interviewed as well as examined at the bedside. The chart was reviewed. The case was discussed. Agree with the plan of care. MENDEZ PUENTES APRN Nov 10, 2016 11:02 MORIS CLARK MD Nov 10, 2016 12:04
[2016-11-10 11:50] VITALS: BP 127/50
--- NOTE | 2016-11-10 12:17 | PDOC ---
PROGRESS NOTES Assessment Assessment Acute small right thalamus infarct. Acute right occipital 2.5 cm infarct. Left side numbness. Right ICA stenosis > 70%. HTN HLD CAD, s/p CABG PE, Hx. DVT. 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 RECOMMENDATIONS/PLAN: He was treated with Xarelto 20 mg daily but discontinued on 11/06 and Plavix since. Hold due to right carotid A endarterectomy on 11/08/16. Continue Lipitor 40 mg HS. Plavix 75 mg daily. ASA 325 mg daily. Add Neurontin 100 mg tid with titration up. Vascular Surgery consulted. Discussed with him and his in detail at bedside on 11/07. Brain MRI performed on 11/06 stroke as above. Carotid A US + Doppler showed high grade stenosis in right ICA. Echo + Bubble study showed no significant abnormal findings. Fasting lipids were WNL. HCT w/o contrast on 11/09/16: New right occipital 2. 5 cm infarct. HISTORY OF THE PRESENT ILLNESS: 76-y-old male patient with Hx of a stroke in 2001 with right side weakness but recovered well after stroke. He wake up in the morning on 11/06 feeling numbness in his left side face, UE and LE extremities. The onset time of his symptoms was unknown. he stated no motor or cranial nerve involvement. No motor deficits, but still has sensory symptoms on the left side UE and LE on 11/08. He is doing fine post right carotid A endarterectomy on 11/09. He had a fall in pm on 11/09/16. Stat HCT was performed which showed a new CVA. PAST MEDICAL HISTORY: Please see above. PAST SURGERY HISTORY: Cataract surgery Tonsillectomy Adenoidectomy CABG Hernia Repair ALLERGY: Reviewed. MEDICATIONS: Refer to [facility] HISTORY: Non contributory. SOCIAL HISTORY: Lives at home. Denies current smoking, drinking, and illicit drug use. He smoked in past but quit smoking in 1990. REVIEW OF SYSTEMS: Constitutional: No malnutrition, weight loss, cachexia. Head: No recent traumatic brain or head injury. Skin: No edema, or rash. Ear: No infection. Eyes: No vision loss or color blindness. Nose: No bleeding or purulent discharges. Hearing: No hearing decrease. Neck: No injury. Cardiac: CAD, s/p CABG, HTN, HLD. Pulmonary: No COPD. GI: No GI ulcer, GI bleeding. Urinary/genital: No dysuria, hematuria, incontinence, urinary retention. Endocrinologic: No cousin face, craniofacial dysmorphism, polydactyly.. Skeletomuscular: No muscular atrophy, deformity. Neurological: see HP. Psychiatric: Denies drug use/abuse. Otherwise, not [id number] review of systems. PHYSICAL EXAMINATION: General appearance is in subacute distress. HEENT: Normocephalic and nontraumatic. Eyes, nose, ears, and throat are unremarkable. Neck is supple. No lymphadenopathy. No crepitus. Cardiovascular: S1, S2, regular rate and rhythm. Pulmonary: Clear to auscultation bilaterally. Abdomen: Bowel sounds are positive. Abdomen is soft, nontender, and nondistended. Extremities: No rash, lesions, or edema. No restriction of range of motion NEUROLOGICAL EXAMINATION: Alert Oriented to time, place and person. PERRL. EOMI. CN: no focal findings. Muscle tone: within normal. Muscle strength: 5 right side, 4+ left side. DTR: 2 Plantar reflex: Flexor response bilaterally Gait: at his baseline normal. Sensory exam: no abnormal findings. No cerebellar signs elicited. F-T-N test accurate. Objective Objective Vital Signs Date Time Temp Pulse Resp B/P Pulse Ox O2 Delivery O2 Flow Rate FiO2 11/10/16 11:50 97.3 74 21 127/50 95 Room Air 97.3 Intake and Output 11/10/16 06:59 Intake Total 1200 ml Output Total 0 ml Balance 1200 ml Intake Oral 1200 ml Output Urine Total 0 ml # Voids 5 Vitals Signs Vitals VS - Last 72 Hours, by Label Date Time Temp Pulse Resp B/P Pulse Ox O2 Delivery O2 Flow Rate FiO2 11/10/16 11:50 97.3 74 21 127/50 95 Room Air 97.3 11/10/16 08:03 73 140/51 11/10/16 08:03 73 140/51 11/10/16 08:00 Room Air 11/10/16 07:30 98.2 69 21 135/52 94 Room Air 98.2 11/10/16 03:00 98.1 73 22 140/51 95 Room Air 98.1 11/09/16 23:41 98.2 72 22 127/45 94 Room Air 98.2 11/09/16 19:45 Room Air 11/09/16 19:15 97.7 79 18 118/43 92 Room Air 97.7 11/09/16 18:15 71 149/43 11/09/16 14:13 97.6 80 22 107/46 90 Room Air 97.6 11/09/16 10:54 97.3 81 21 104/40 90 Room Air 97.3 11/09/16 08:42 64 115/47 11/09/16 08:41 64 115/47 11/09/16 08:00 Room Air 11/09/16 07:30 98.1 64 20 115/47 91 Room Air 98.1 Medication Medications Current Medications Aspirin (Scottie Aspirin) 325 mg 1X ONCE PO Last administered on 11/09/16 22:10 ; Start 11/09/16 at 22:30; Stop 11/09/16 at 22:31; Status DC Aspirin (Scottie Aspirin) 325 mg DAILYWBKFT PO Last administered on 11/10/16 08: 02; Start 11/10/16 at 08:00 Atorvastatin Calcium (Lipitor) 40 mg QHS PO ; Start 11/10/16 at 21:00 Gabapentin (Neurontin) 100 mg TID PO Last administered on 11/10/16 08:03; Start 11/09/16 at 15:30 Losartan Potassium (Cozaar) 50 mg STK-MED ONCE .ROUTE ; Start 11/10/16 at 07:30; Stop 11/10/16 at 07:31; Status DC Comment Review of Relevant I have reviewed the following items kiley (where applicable) has been applied. KEN ISAAC MD Nov 10, 2016 12:17
[2016-11-10 13:29] LABS: BILIRUBIN,URINE NEGATIVE (NEG); GLUCOSE,URINE NEGATIVE (NEG); NITRITE,URINE NEGATIVE (NEG); PROTEIN,URINE NEGATIVE (NEG-TRACE); UROBILINOGEN,URINE 0.2 mg/dL (0.2 mg/dL)
[2016-11-10 13:40] LABS: BACTERIA,URINE FEW /HPF (0-FEW); RBC,URINE OCC /HPF (0-2); SQUAMOUS EPITHELIAL CELL,UR FEW /LPF
[2016-11-10 15:00] VITALS: BP 137/52
[2016-11-10 19:15] VITALS: BP 123/45
[2016-11-10] MEDS: ATORVASTATIN CALCIUM 40 MG TABLET. PO SCH (20:48)
[2016-11-10] MEDS: ACETAMINOPHEN 325 MG TABLET. PO SCH (20:48)
--- NOTE | 2016-11-10 21:57 | CONS ---
DATE OF CONSULTATION: 11/09/2016 Narinder Moser, nurse practitioner, dictating for Dr. Moris Clark, Infectious Disease. REQUESTING PHYSICIAN: Dr. Acosta. REASON FOR CONSULTATION: Leukocytosis. HISTORY OF PRESENT ILLNESS: The patient is a pleasant 76-year-old male who on 11/06/2016 presented with numbness of his left face, arm and leg after waking up in the morning. A brain MRI revealed a small acute infarct in the right thalamus. He was found to have 70% stenosis of the right carotid artery and underwent endarterectomy with bovine patch angioplasty on 11/08/2016. His initial white blood cell count on admission was 20,100 and is now increased to 29,600, hence ID consult. The patient is feeling well. His equilibrium is little bit off still. History of falls. Denies headache. He has had some sinus congestion over the past 3 weeks or so. His right ear feels "plugged." He has been on three rounds of antibiotics and now reports some improvement. His throat is mostly dry. Denies cough, shortness of air or chest discomfort. Denies nausea or vomiting. He has not had a bowel movement in 4 days. Denies abdominal pain, cramps or bloating. Denies dysuria, frequency or urgency. Denies muscle aches, joint pains, fevers, or chills. PAST MEDICAL HISTORY: DVT. Prior left-sided CVA. History of seizures. Hypercholesterolemia, hypertension, emphysema, pulmonary embolism in 1990, hiatal hernia, arthritis. PAST SURGICAL HISTORY: Right carotid endarterectomy in 11/08/2016. Coronary artery bypass graft. Tonsillectomy, adenoidectomy, cataract extraction. SOCIAL HISTORY: The patient is . He lives at home. Nonsmoker, nondrinker. No history of illicit drug use. FAMILY HISTORY: Noncontributory. ALLERGIES: No known drug allergies. MEDICATIONS: Levofloxacin started on 11/07/2016, dexamethasone one time dose on 11/08/2016. Other medications are available and have been reviewed on the OCT. PHYSICAL EXAMINATION: GENERAL: male sitting in chair in no apparent distress. VITAL SIGNS: Afebrile. Blood pressure 140/51, heart rate 73, respiratory rate 21, pulse oximetry is 94% on room air. Weight is 221.01 pounds. HEENT: Pupils equally round and reactive. Normal conjunctivae. Oropharynx, cavity clear. Negative sinus tenderness. NECK: Supple, no adenopathy present. Right neck incision well approximated with Steri-Strips intact. No redness, swelling or drainage noted. LUNGS: Clear to auscultation. HEART: Normal S1, S2. ABDOMEN: Obese, bowel sounds are present, soft, nontender. EXTREMITIES: No gross edema or cyanosis. SKIN: Without rash. Warm to touch. NEUROLOGIC: Alert and oriented x 3. Moves all extremities. LABORATORY DATA: Recent WBC 29.6, hemoglobin 11.7, platelet count 212,000, segs 66%, bands 6%. Sodium 135. Electrolytes unremarkable. Creatinine 1.3, BUN 19. Urinalysis pending. Lumbar spine shows multilevel degenerative change within the lumbar spine. Brain MRI and carotid Doppler per HPI. CT head and cervical spine reviewed. IMPRESSION: 1. Leukocytosis, likely reactive. 2. Sinus congestion, improving. 3. Constipation. 4. Carotid stenosis, status post right endarterectomy on 11/08/2016. 5. Acute right cerebrovascular accident. IMPRESSION: The patient is clinically well. Continue the levofloxacin for now. Repeat CBC in the morning. Bowel regimen. PT and OT. Thank you, Dr. Acosta for asking us to participate in this patient's care. Should you have further questions or concerns, please call. MORIS CLARK MD DR: JOSE ARMANDO/analisa JOB#: [id number] / [id number]
[2016-11-10 23:36] VITALS: BP 141/56
[2016-11-11 03:27] VITALS: BP 149/61
[2016-11-11 06:02] LABS: BASO # 0.2 x10^3/uL (0.0-0.2); BASO % 1 % (0-3); EOS % 2 % (0-3); HEMOGLOBIN 11.2 g/dL (13.0-17.5); LYMPH # 1.1 x10^3/uL (1.0-4.8); LYMPH % 5 % (24-48); MEAN CORPUSCULAR HEMOGLOBIN 28 pg (25-35); MEAN CORPUSCULAR HGB CONC 32 g/dL (31-37); MEAN CORPUSCULAR VOLUME 86 fL (79-100); MONO % 43 % (0-9); NEUT % 50 % (31-73); PLATELET COUNT 202 x10^3/uL (140-400); RED BLOOD COUNT 4.05 x10^6/uL (4.30-5.70); RED CELL DISTRIBUTION WIDTH 20.6 % (11.5-14.5); WHITE BLOOD COUNT 22.9 x10^3/uL (4.0-11.0)
[2016-11-11] MEDS: LEVOFLOXACIN 500 MG TABLET PO SCH (06:03)
[2016-11-11 07:21] LABS: % EOS 1 % (0-5)
[2016-11-11 07:22] LABS: ANISOCYTOSIS PRESENT; PLT ESTIMATE ADEQUATE (ADEQUATE)
[2016-11-11 07:55] VITALS: BP 126/59
[2016-11-11] MEDS: VITAMIN E 200 UNIT CAPSULE. PO SCH (08:01)
[2016-11-11] MEDS: GABAPENTIN 100 MG CAPSULE. PO SCH (08:01)
[2016-11-11] MEDS: CLOPIDOGREL BISULFATE 75 MG TABLET PO SCH (08:01)
[2016-11-11] MEDS: CELECOXIB 200 MG CAPSULE. PO SCH (08:01)
[2016-11-11] MEDS: ASPIRIN 325 MG TABLET PO SCH (08:01)
[2016-11-11] MEDS: AMLODIPINE BESYLATE 5 MG TABLET. PO SCH (08:02)
[2016-11-11] MEDS: LOSARTAN POTASSIUM 50 MG TABLET. PO SCH (08:04)
--- NOTE | 2016-11-11 08:31 | PDOC ---
Provider Note Provider Note Vascular Surgery: POD#3 s/p R CEA The patient is doing well, he denies any neck pain. VSS Neuro intact incision - clean and intact Plan: - Ok for discharge from vascular perspective - continue aspirin / plavix / statin - f/u with Dr. Francisco n 2 weeks - PT to evaluate patient for balance issues - remains on levaquin, WBC decreased to 22.9, UA negative CLEO SANTIAGO MD Nov 11, 2016 08:31
--- NOTE | 2016-11-11 08:54 | PDOC ---
Infectious Disease Note Subjective Subjective Comfortable Right ear still feels "plugged up," no pain Throat dry + BM ROS ROS GEN: Denies fevers, chills, sweats CV: Denies chest pain RESP: Denies shortness of air, cough GI: Denies n/v/d NEURO: Denies confusion, dizziness Vital Sign Vital Signs Vital Signs Date Time Temp Pulse Resp B/P Pulse Ox O2 Delivery O2 Flow Rate FiO2 11/11/16 08:04 80 149/61 11/11/16 07:55 97.4 20 94 Room Air 97.4 Physical Exam PHYSICAL EXAM GENERAL: Alert, smiling, sitting in chiar HENT: OP/OC dry. Negative sinus tenderness. NECK: Supple, no adenopathy present. Right neck incision well approximated with Steri-Strips intact. No redness, swelling or drainage noted. LUNGS: Clear to auscultation. HEART: Normal S1, S2. ABDOMEN: Obese, bowel sounds are present, soft, nontender. EXTREMITIES: No gross edema or cyanosis. SKIN: Without rash. Warm to touch. NEUROLOGIC: Alert and oriented x 3. Moves all extremities. Labs Lab Laboratory Tests Test 11/10/16 12:45 11/11/16 05:00 Urine Collection Type Unknown Urine Color Yellow Urine Clarity Clear Urine pH 5.0 Urine Specific [place] 1.015 Urine Protein Negativemg/dL (NEG-TRACE) Urine Glucose (UA) Negativemg/dL (NEG) Urine Ketones (Stick) Negativemg/dL (NEG) Urine Blood Negative (NEG) Urine Nitrite Negative (NEG) Urine Bilirubin Negative (NEG) Urine Urobilinogen Dipstick 0.2mg/dL (0.2 mg/dL) Urine Leukocyte Esterase Negative (NEG) Urine RBC Occ/HPF (0-2) Urine WBC 1-4/HPF (0-4) Urine Squamous Epithelial Cells Few/LPF Urine Amorphous Sediment Present/HPF Urine Bacteria Few/HPF (0-FEW) Urine Hyaline Casts Few/HPF Urine Granular Casts Few/HPF Urine Mucus Marked/LPF White Blood Count 22.9x10^3/uL (4.0-11.0) Red Blood Count 4.05x10^6/uL (4.30-5.70) Hemoglobin 11.2g/dL (13.0-17.5) Hematocrit 35.0% (39.0-53.0) Mean Corpuscular Volume 86fL (79-100) Mean Corpuscular Hemoglobin 28pg (25-35) Mean Corpuscular Hemoglobin Concent 32g/dL (31-37) Red Cell Distribution Width 20.6% (11.5-14.5) Platelet Count 202x10^3/uL (140-400) Neutrophils (%) (Auto) 50% (31-73) Lymphocytes (%) (Auto) 5% (24-48) Monocytes (%) (Auto) 43% (0-9) Eosinophils (%) (Auto) 2% (0-3) Basophils (%) (Auto) 1% (0-3) Neutrophils # (Auto) 11.4x10^3uL (1.8-7.7) Lymphocytes # (Auto) 1.1x10^3/uL (1.0-4.8) Monocytes # (Auto) 9.7x10^3/uL (0.0-1.1) Eosinophils # (Auto) 0.5x10^3/uL (0.0-0.7) Basophils # (Auto) 0.2x10^3/uL (0.0-0.2) Segmented Neutrophils % 62% (35-66) Band Neutrophils % 3% (0-9) Lymphocytes % 3% (24-48) Atypical Lymphocytes % (Manual) 1% (0-0) Monocytes % 30% (0-10) Eosinophils % 1% (0-5) Platelet Estimate Adequate (ADEQUATE) Anisocytosis Present Objective Assessment Leukocytosis, likely reactive (acute infarct, steroids, procedure, constipation) , improved Sinus congestion, better -3rd round abx past 3 weeks per pt Constipation. + BM Carotid stenosis. s/p right endarterectomy, 11/08 Acute right CVA Plan Plan of Care Clinically doing well, Levaquin for now but wean off Bowel regime PT/OT D/w Attending Co-Sign Attending Co-Sign The patient was seen and interviewed as well as examined at the bedside. The chart was reviewed. The case was discussed. Agree with the plan of care. MENDEZ PUENTES APRN Nov 11, 2016 08:54 MORIS CLARK MD Nov 11, 2016 12:10
[2016-11-11 10:19] VITALS: BP 123/52
--- NOTE | 2016-11-11 11:15 | PDOC ---
GENERAL General: vss and afebrile. awake and alert and in attendance. therapy recommends snu and patient and good with same. WBC decreased to 22.9K today and left shift improving. ID feels reactive and will follow same. neck incision ok. left sided numbness persists and not particularly bothersome to patient. will dc gabapentin with tendency to cause balance issues. otherwise same. Problems: VITAL SIGNS Vital Signs: Vital Signs Date Time Temp Pulse Resp B/P Pulse Ox O2 Delivery O2 Flow Rate FiO2 11/11/16 10:19 97.8 87 20 123/52 95 Room Air 97.8 I & O I & O Intake and Output 11/11/16 06:59 Intake Total 1930 ml Output Total 300 ml Balance 1630 ml Intake Oral 1930 ml Output Urine Total 300 ml # Voids 13 # Bowel Movements 2 ALLERGIES Allergies: Allergies Coded Allergies Type Severity Reaction Last Updated Verified No Known Drug Allergies 01/14/15 No MEDS Medications: Current Medications Medications (Trade) Dose Ordered Sig/Damon Start Time Stop Time Status Last Admin Dose Admin Acetaminophen (Tylenol) 650 mg HS 11/08/16 21:00 11/10/16 20:48 650 MG Acetaminophen/ Hydrocodone Bitart (Lortab 5/325) 1 tab PRN Q4HRS PRN 11/08/16 15:45 Amlodipine Besylate (Norvasc) 5 mg DAILY 11/09/16 09:00 11/11/16 08:02 5 MG Aspirin (Scottie Aspirin) 325 mg DAILYWBKFT 11/10/16 08:00 11/11/16 08:01 325 MG Atorvastatin Calcium (Lipitor) 40 mg QHS 11/10/16 21:00 11/10/16 20:48 40 MG Cefazolin Sodium/ Dextrose (Ancef 2gm Premix) 50 ml @ As Directed STK-MED ONCE 11/08/16 15:42 11/08/16 15:44 DC Cefazolin Sodium/ Sodium Chloride (Ancef/Iv Sodium Chloride 0.9% 500ml Bag) 500 ml @ 500 mls/hr 1X PERIOP ONCE 11/08/16 08:00 11/08/16 08:59 DC 11/08/16 16:04 Celecoxib (Celebrex) 200 mg DAILY 11/09/16 09:00 11/11/16 08:01 200 MG Cellulose 1 each STK-MED ONCE 11/08/16 15:37 11/08/16 15:38 DC 11/08/16 16:04 1 EACH Clopidogrel Bisulfate (Plavix) 75 mg DAILYWBKFT 11/07/16 08:00 11/07/16 08:00 DC Clopidogrel Bisulfate 75 mg 75 mg DAILYWBKFT 11/06/16 20:15 11/11/16 08:01 75 MG Dexamethasone Sodium Phosphate (Decadron) 20 mg STK-MED ONCE 11/08/16 16:45 11/08/16 16:46 DC Famotidine (Pepcid) 20 mg STK-MED ONCE 11/08/16 16:49 11/08/16 16:50 DC Fentanyl Citrate (Fentanyl 2ml Vial) 50 mcg PRN Q5MIN PRN 11/08/16 19:00 11/08/16 22:00 DC 11/08/16 19:10 50 MCG Gabapentin (Neurontin) 100 mg TID 11/09/16 15:30 11/11/16 08:01 100 MG Glycopyrrolate (Robinul) 1 mg STK-MED ONCE 11/08/16 16:26 11/08/16 16:27 DC Heparin Sodium (Porcine) 5000 unit/Lactated Ringer's 505 ml @ 505 mls/hr 1X PERIOP ONCE 11/08/16 08:00 11/08/16 08:59 DC 11/08/16 16:04 Hydromorphone HCl (Dilaudid) 0.5 mg PRN Q10MIN PRN 11/08/16 07:00 11/08/16 18:14 DC Labetalol HCl (Normodyne) 10 mg PRN Q2HR PRN 11/08/16 15:45 Lactated Ringer's (Iv Lactated Ringers) 1,000 ml @ 30 mls/hr Q24H 11/08/16 07:00 11/08/16 18:59 DC 11/08/16 13:47 30 MLS/HR Levofloxacin (Levaquin) 500 mg DAILY06 11/07/16 09:30 11/11/16 12:00 11/11/16 06:03 500 MG Lidocaine HCl 2 ml 1X PRN PRN 11/08/16 07:00 11/08/16 18:14 DC Lidocaine HCl 20 ml 20 ml STK-MED ONCE 11/08/16 15:37 11/08/16 15:38 DC 11/08/16 16:04 8 ML Losartan Potassium (Cozaar) 50 mg DAILY 11/11/16 09:00 11/11/16 08:04 50 MG Midazolam HCl 2 mg 2 mg STK-MED ONCE 11/08/16 14:45 11/08/16 14:46 DC Morphine Sulfate 1 mg PRN Q10MIN PRN 11/08/16 19:00 11/08/16 22:00 DC Morphine Sulfate 1 mg 1 mg PRN Q10MIN PRN 11/08/16 07:00 11/08/16 18:14 DC Ondansetron HCl (Zofran) 4 mg STK-MED ONCE 11/08/16 16:49 11/08/16 16:50 DC Phenylephrine HCl 1 mg STK-MED ONCE 11/08/16 16:57 11/08/16 16:58 DC Prochlorperazine Edisylate (Compazine) 10 mg STK-MED ONCE 11/08/16 18:49 11/08/16 18:50 DC Propofol (Diprivan) 20 ml @ As Directed STK-MED ONCE 11/08/16 15:31 11/08/16 15:32 DC Rivaroxaban (Xarelto) 20 mg DAILYWSUP 11/06/16 17:00 11/07/16 10:43 DC Ropivacaine (Naropin 0.5%) 30 ml STK-MED ONCE 11/08/16 14:37 11/08/16 14:38 DC Succinylcholine Chloride (Anectine) 200 mg STK-MED ONCE 11/08/16 16:28 11/08/16 16:29 DC Vitamin E 400 unit DAILY 11/07/16 09:00 11/11/16 08:01 400 UNIT LAB Lab: Laboratory Tests Test 11/10/16 12:45 11/11/16 05:00 Urine Collection Type Unknown Urine Color Yellow Urine Clarity Clear Urine pH 5.0 Urine Specific [place] 1.015 Urine Protein Negativemg/dL (NEG-TRACE) Urine Glucose (UA) Negativemg/dL (NEG) Urine Ketones (Stick) Negativemg/dL (NEG) Urine Blood Negative (NEG) Urine Nitrite Negative (NEG) Urine Bilirubin Negative (NEG) Urine Urobilinogen Dipstick 0.2mg/dL (0.2 mg/dL) Urine Leukocyte Esterase Negative (NEG) Urine RBC Occ/HPF (0-2) Urine WBC 1-4/HPF (0-4) Urine Squamous Epithelial Cells Few/LPF Urine Amorphous Sediment Present/HPF Urine Bacteria Few/HPF (0-FEW) Urine Hyaline Casts Few/HPF Urine Granular Casts Few/HPF Urine Mucus Marked/LPF White Blood Count 22.9x10^3/uL (4.0-11.0) Red Blood Count 4.05x10^6/uL (4.30-5.70) Hemoglobin 11.2g/dL (13.0-17.5) Hematocrit 35.0% (39.0-53.0) Mean Corpuscular Volume 86fL (79-100) Mean Corpuscular Hemoglobin 28pg (25-35) Mean Corpuscular Hemoglobin Concent 32g/dL (31-37) Red Cell Distribution Width 20.6% (11.5-14.5) Platelet Count 202x10^3/uL (140-400) Neutrophils (%) (Auto) 50% (31-73) Lymphocytes (%) (Auto) 5% (24-48) Monocytes (%) (Auto) 43% (0-9) Eosinophils (%) (Auto) 2% (0-3) Basophils (%) (Auto) 1% (0-3) Neutrophils # (Auto) 11.4x10^3uL (1.8-7.7) Lymphocytes # (Auto) 1.1x10^3/uL (1.0-4.8) Monocytes # (Auto) 9.7x10^3/uL (0.0-1.1) Eosinophils # (Auto) 0.5x10^3/uL (0.0-0.7) Basophils # (Auto) 0.2x10^3/uL (0.0-0.2) Segmented Neutrophils % 62% (35-66) Band Neutrophils % 3% (0-9) Lymphocytes % 3% (24-48) Atypical Lymphocytes % (Manual) 1% (0-0) Monocytes % 30% (0-10) Eosinophils % 1% (0-5) Platelet Estimate Adequate (ADEQUATE) Anisocytosis Present ARSENIO ENGLISH MD Nov 11, 2016 11:15
--- NOTE | 2016-11-11 14:42 | PDOC ---
PROGRESS NOTES Assessment Assessment Acute small right thalamus infarct. Acute right occipital 2.5 cm infarct. Left side numbness. Right ICA stenosis > 70%. HTN HLD CAD, s/p CABG PE, Hx. DVT. 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 RECOMMENDATIONS/PLAN: He was treated with Xarelto 20 mg daily but discontinued on 11/06. Right carotid A endarterectomy performed on 11/08/16. Continue Lipitor 40 mg HS. Plavix 75 mg daily. ASA 325 mg daily. Neurontin 200 mg tid. Vascular Surgery consulted. Discussed with him and his in detail at bedside on 11/07. Brain MRI performed on 11/06 stroke as above. Carotid A US + Doppler showed high grade stenosis in right ICA. Echo + Bubble study showed no significant abnormal findings. Fasting lipids were WNL. HCT w/o contrast on 11/09/16: New right occipital 2. 5 cm infarct. HISTORY OF THE PRESENT ILLNESS: 76-y-old male patient with Hx of a stroke in 2001 with right side weakness but recovered well after stroke. He wake up in the morning on 11/06 feeling numbness in his left side face, UE and LE extremities. The onset time of his symptoms was unknown. he stated no motor or cranial nerve involvement. No motor deficits, but still has sensory symptoms on the left side UE and LE on 11/08. He is doing fine post right carotid A endarterectomy on 11/09. He had a fall in pm on 11/09/16. Stat HCT was performed which showed a new CVA. PAST MEDICAL HISTORY: Please see above. PAST SURGERY HISTORY: Cataract surgery Tonsillectomy Adenoidectomy CABG Hernia Repair ALLERGY: Reviewed. MEDICATIONS: Refer to [facility] FAMILY HISTORY: Non contributory. SOCIAL HISTORY: Lives at home. Denies current smoking, drinking, and illicit drug use. He smoked in past but quit smoking in 1990. REVIEW OF SYSTEMS: Constitutional: No malnutrition, weight loss, cachexia. Head: No recent traumatic brain or head injury. Skin: No edema, or rash. Ear: No infection. Eyes: No vision loss or color blindness. Nose: No bleeding or purulent discharges. Hearing: No hearing decrease. Neck: No injury. Cardiac: CAD, s/p CABG, HTN, HLD. Pulmonary: No COPD. GI: No GI ulcer, GI bleeding. Urinary/genital: No dysuria, hematuria, incontinence, urinary retention. Endocrinologic: No cousin face, craniofacial dysmorphism, polydactyly.. Skeletomuscular: No muscular atrophy, deformity. Neurological: see HP. Psychiatric: Denies drug use/abuse. Otherwise, not [id number] review of systems. PHYSICAL EXAMINATION: General appearance is in subacute distress. HEENT: Normocephalic and nontraumatic. Eyes, nose, ears, and throat are unremarkable. Neck is supple. No lymphadenopathy. No crepitus. Cardiovascular: S1, S2, regular rate and rhythm. Pulmonary: Clear to auscultation bilaterally. Abdomen: Bowel sounds are positive. Abdomen is soft, nontender, and nondistended. Extremities: No rash, lesions, or edema. No restriction of range of motion NEUROLOGICAL EXAMINATION: Alert Oriented to time, place and person. PERRL. EOMI. CN: no focal findings. Muscle tone: within normal. Muscle strength: 5 right side, 5- left side. DTR: 2 Plantar reflex: Flexor response bilaterally Gait: at his baseline normal. Sensory exam: no abnormal findings. No cerebellar signs elicited. F-T-N test fine. Objective Objective Vital Signs Date Time Temp Pulse Resp B/P Pulse Ox O2 Delivery O2 Flow Rate FiO2 11/11/16 10:19 97.8 87 20 123/52 95 Room Air 97.8 Intake and Output 11/11/16 07:00 Intake Total 1930 ml Output Total 300 ml Balance 1630 ml Intake Oral 1930 ml Output Urine Total 300 ml # Voids 13 # Bowel Movements 2 Vitals Signs Vitals VS - Last 72 Hours, by Label Date Time Temp Pulse Resp B/P Pulse Ox O2 Delivery O2 Flow Rate FiO2 11/11/16 10:19 97.8 87 20 123/52 95 Room Air 97.8 11/11/16 08:04 80 149/61 11/11/16 08:02 80 149/61 11/11/16 08:00 Room Air 11/11/16 07:55 97.4 90 20 126/59 94 Room Air 97.4 11/11/16 03:27 97.4 80 20 149/61 91 Room Air 97.4 11/10/16 23:36 97.5 80 22 141/56 95 Room Air 97.5 11/10/16 19:23 Room Air 11/10/16 19:15 97.5 85 22 123/45 94 Room Air 97.5 11/10/16 15:00 97.8 79 20 137/52 97 Room Air 97.8 11/10/16 15:00 97.8 79 20 137/52 97 Room Air 97.8 11/10/16 11:50 97.3 74 21 127/50 95 Room Air 97.3 11/10/16 08:03 73 140/51 11/10/16 08:03 73 140/51 11/10/16 08:00 Room Air 11/10/16 07:30 98.2 69 21 135/52 94 Room Air 98.2 Laboratory Laboratory Laboratory Tests Test 11/11/16 05:00 White Blood Count 22.9x10^3/uL (4.0-11.0) Red Blood Count 4.05x10^6/uL (4.30-5.70) Hemoglobin 11.2g/dL (13.0-17.5) Hematocrit 35.0% (39.0-53.0) Mean Corpuscular Volume 86fL (79-100) Mean Corpuscular Hemoglobin 28pg (25-35) Mean Corpuscular Hemoglobin Concent 32g/dL (31-37) Red Cell Distribution Width 20.6% (11.5-14.5) Platelet Count 202x10^3/uL (140-400) Neutrophils (%) (Auto) 50% (31-73) Lymphocytes (%) (Auto) 5% (24-48) Monocytes (%) (Auto) 43% (0-9) Eosinophils (%) (Auto) 2% (0-3) Basophils (%) (Auto) 1% (0-3) Neutrophils # (Auto) 11.4x10^3uL (1.8-7.7) Lymphocytes # (Auto) 1.1x10^3/uL (1.0-4.8) Monocytes # (Auto) 9.7x10^3/uL (0.0-1.1) Eosinophils # (Auto) 0.5x10^3/uL (0.0-0.7) Basophils # (Auto) 0.2x10^3/uL (0.0-0.2) Segmented Neutrophils % 62% (35-66) Band Neutrophils % 3% (0-9) Lymphocytes % 3% (24-48) Atypical Lymphocytes % (Manual) 1% (0-0) Monocytes % 30% (0-10) Eosinophils % 1% (0-5) Platelet Estimate Adequate (ADEQUATE) Anisocytosis Present Medication Medications Current Medications Atorvastatin Calcium (Lipitor) 40 mg QHS PO Last administered on 11/10/16 20:48 ; Start 11/10/16 at 21:00 Losartan Potassium (Cozaar) 50 mg DAILY PO Last administered on 11/11/16 08:04 ; Start 11/11/16 at 09:00 Comment Review of Relevant I have reviewed the following items kiley (where applicable) has been applied. KEN ISAAC MD Nov 11, 2016 14:42
[2016-11-11 15:55] VITALS: BP 133/55
[2016-11-11 19:10] VITALS: BP 135/56
[2016-11-11] MEDS: ATORVASTATIN CALCIUM 40 MG TABLET. PO SCH (21:44)
[2016-11-11] MEDS: ACETAMINOPHEN 325 MG TABLET. PO SCH (21:44)
[2016-11-11 23:15] VITALS: BP 138/66
[2016-11-12 03:35] VITALS: BP 154/78
[2016-11-12 04:00] LABS: BASO # 0.2 x10^3/uL (0.0-0.2); BASO % 1 % (0-3); EOS % 2 % (0-3); HEMATOCRIT 35.4 % (39.0-53.0); HEMOGLOBIN 11.5 g/dL (13.0-17.5); LYMPH # 1.1 x10^3/uL (1.0-4.8); LYMPH % 5 % (24-48); MEAN CORPUSCULAR HEMOGLOBIN 28 pg (25-35); MEAN CORPUSCULAR HGB CONC 32 g/dL (31-37); MEAN CORPUSCULAR VOLUME 86 fL (79-100); MONO % 41 % (0-9); NEUT % 51 % (31-73); PLATELET COUNT 209 x10^3/uL (140-400); RED BLOOD COUNT 4.11 x10^6/uL (4.30-5.70); RED CELL DISTRIBUTION WIDTH 20.5 % (11.5-14.5); WHITE BLOOD COUNT 23.8 x10^3/uL (4.0-11.0)
[2016-11-12 07:44] VITALS: BP 166/72
--- NOTE | 2016-11-12 09:09 | PDOC ---
Provider Note Provider Note Vascular Surgery: POD#4 s/p R CEA S: Patient without complaints, poss to rehab today VSS Neuro intact incision - clean and intact Plan: - Ok for discharge from vascular perspective - monitor BP - continue aspirin / plavix / statin - f/u with Dr. Francisco in 2 weeks NATTY CORDERO APRN Nov 12, 2016 09:09
--- NOTE | 2016-11-12 09:27 | PDOC ---
Infectious Disease Note Subjective Subjective Comfortable Doing well. Ear better. Ate well + BM ROS ROS GEN: Denies fevers, chills, sweats HEENT: Denies blurred vision, sore throat CV: Denies chest pain RESP: Denies shortness of air, cough GI: Denies n/v/d NEURO: Denies confusion, dizziness MSK: Denies weakness, joint pain/swelling Vital Sign Vital Signs Vital Signs Date Time Temp Pulse Resp B/P Pulse Ox O2 Delivery O2 Flow Rate FiO2 11/12/16 08:00 Room Air 11/12/16 07:44 98.5 87 20 166/72 91 98.5 Physical Exam PHYSICAL EXAM GENERAL: Alert, smiling, sitting in chair HENT: OP/OC dry. Negative sinus tenderness. NECK: Supple, no adenopathy present. Right neck incision well approximated with Steri-Strips intact. No redness, swelling or drainage noted. LUNGS: Clear to auscultation. HEART: Normal S1, S2. ABDOMEN: Obese, bowel sounds are present, soft, nontender. EXTREMITIES: No gross edema or cyanosis. SKIN: Without rash. Warm to touch. NEUROLOGIC: Alert and oriented x 3. Moves all extremities Labs Lab Laboratory Tests Test 11/12/16 03:40 White Blood Count 23.8x10^3/uL (4.0-11.0) Red Blood Count 4.11x10^6/uL (4.30-5.70) Hemoglobin 11.5g/dL (13.0-17.5) Hematocrit 35.4% (39.0-53.0) Mean Corpuscular Volume 86fL (79-100) Mean Corpuscular Hemoglobin 28pg (25-35) Mean Corpuscular Hemoglobin Concent 32g/dL (31-37) Red Cell Distribution Width 20.5% (11.5-14.5) Platelet Count 209x10^3/uL (140-400) Neutrophils (%) (Auto) 51% (31-73) Lymphocytes (%) (Auto) 5% (24-48) Monocytes (%) (Auto) 41% (0-9) Eosinophils (%) (Auto) 2% (0-3) Basophils (%) (Auto) 1% (0-3) Neutrophils # (Auto) 12.0x10^3uL (1.8-7.7) Lymphocytes # (Auto) 1.1x10^3/uL (1.0-4.8) Monocytes # (Auto) 9.8x10^3/uL (0.0-1.1) Eosinophils # (Auto) 0.6x10^3/uL (0.0-0.7) Basophils # (Auto) 0.2x10^3/uL (0.0-0.2) Objective Assessment Leukocytosis, likely reactive (acute infarct, steroids, procedure, constipation) . AF and looks well. Appetite is good Sinus congestion, better - has had 3 rounds of outpat abx per -3rd round abx past 3 weeks per pt Constipation. improved Carotid stenosis. s/p right endarterectomy, 11/08 Acute right CVA Dependent rubor Plan Plan of Care Clinically doing well Would repeat CBC in a week. Earlier if he becomes symptomatic but now he looks great. F/u Monocytes if persistently elevated may need Heme eval Ok to transfer D/w MORIS CLARK MD Nov 12, 2016 09:27
[2016-11-12] MEDS: VITAMIN E 200 UNIT CAPSULE. PO SCH (10:19)
[2016-11-12] MEDS: CELECOXIB 200 MG CAPSULE. PO SCH (10:19)
[2016-11-12] MEDS: ASPIRIN 325 MG TABLET PO SCH (10:19)
[2016-11-12] MEDS: CLOPIDOGREL BISULFATE 75 MG TABLET PO SCH (10:19)
[2016-11-12] MEDS: LOSARTAN POTASSIUM 50 MG TABLET. PO SCH (10:20)
[2016-11-12] MEDS: AMLODIPINE BESYLATE 5 MG TABLET. PO SCH (10:20)
[2016-11-12 11:00] VITALS: BP 155/71
--- NOTE | 2016-11-12 11:10 | PDOC ---
PROGRESS NOTES Assessment Acute small right thalamus infarct on CT done after the fall, 11/09. Acute right occipital 2.5 cm infarct. Left side numbness. Status-post right carotid endarterectomy HTN HLD CAD, s/p CABG PE, Hx. DVT. 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 Plan He was treated with Xarelto 20 mg daily but discontinued on 11/06, Resume when okay with Fasbinder surgery. Okay for discharge to [facility] Continue Lipitor 40 mg HS. Plavix 75 mg daily. ASA 325 mg daily. Neurontin 200 mg tid. Subjective No complaints Objective Vital Signs Date Time Temp Pulse Resp B/P Pulse Ox O2 Delivery O2 Flow Rate FiO2 11/12/16 10:20 87 166/72 11/12/16 08:00 Room Air 11/12/16 07:44 98.5 20 91 98.5 Intake and Output 11/12/16 07:00 Intake Total 790 ml Balance 790 ml Intake Oral 790 ml # Voids 2 PHYSICAL EXAM Alert. Oriented to time, place and person. PERRL. EOMI. CN: no focal findings. Muscle tone: normal. Muscle strength: 5-/5 DTR: 2+ Plantar reflex: Flexor Gait: ambulates well with roller walker Sensory exam: no abnormal findings. No cerebellar signs elicited. Review of Relevant I have reviewed the following items kiley (where applicable) has been applied. Labs Laboratory Tests Test 11/10/16 12:45 11/11/16 05:00 11/12/16 03:40 Urine Collection Type Unknown Urine Color Yellow Urine Clarity Clear Urine pH 5.0 Urine Specific [place] 1.015 Urine Protein Negativemg/dL (NEG-TRACE) Urine Glucose (UA) Negativemg/dL (NEG) Urine Ketones (Stick) Negativemg/dL (NEG) Urine Blood Negative (NEG) Urine Nitrite Negative (NEG) Urine Bilirubin Negative (NEG) Urine Urobilinogen Dipstick 0.2mg/dL (0.2 mg/dL) Urine Leukocyte Esterase Negative (NEG) Urine RBC Occ/HPF (0-2) Urine WBC 1-4/HPF (0-4) Urine Squamous Epithelial Cells Few/LPF Urine Amorphous Sediment Present/HPF Urine Bacteria Few/HPF (0-FEW) Urine Hyaline Casts Few/HPF Urine Granular Casts Few/HPF Urine Mucus Marked/LPF White Blood Count 22.9x10^3/uL (4.0-11.0) 23.8x10^3/uL (4.0-11.0) Red Blood Count 4.05x10^6/uL (4.30-5.70) 4.11x10^6/uL (4.30-5.70) Hemoglobin 11.2g/dL (13.0-17.5) 11.5g/dL (13.0-17.5) Hematocrit 35.0% (39.0-53.0) 35.4% (39.0-53.0) Mean Corpuscular Volume 86fL (79-100) 86fL (79-100) Mean Corpuscular Hemoglobin 28pg (25-35) 28pg (25-35) Mean Corpuscular Hemoglobin Concent 32g/dL (31-37) 32g/dL (31-37) Red Cell Distribution Width 20.6% (11.5-14.5) 20.5% (11.5-14.5) Platelet Count 202x10^3/uL (140-400) 209x10^3/uL (140-400) Neutrophils (%) (Auto) 50% (31-73) 51% (31-73) Lymphocytes (%) (Auto) 5% (24-48) 5% (24-48) Monocytes (%) (Auto) 43% (0-9) 41% (0-9) Eosinophils (%) (Auto) 2% (0-3) 2% (0-3) Basophils (%) (Auto) 1% (0-3) 1% (0-3) Neutrophils # (Auto) 11.4x10^3uL (1.8-7.7) 12.0x10^3uL (1.8-7.7) Lymphocytes # (Auto) 1.1x10^3/uL (1.0-4.8) 1.1x10^3/uL (1.0-4.8) Monocytes # (Auto) 9.7x10^3/uL (0.0-1.1) 9.8x10^3/uL (0.0-1.1) Eosinophils # (Auto) 0.5x10^3/uL (0.0-0.7) 0.6x10^3/uL (0.0-0.7) Basophils # (Auto) 0.2x10^3/uL (0.0-0.2) 0.2x10^3/uL (0.0-0.2) Segmented Neutrophils % 62% (35-66) Band Neutrophils % 3% (0-9) Lymphocytes % 3% (24-48) Atypical Lymphocytes % (Manual) 1% (0-0) Monocytes % 30% (0-10) Eosinophils % 1% (0-5) Platelet Estimate Adequate (ADEQUATE) Anisocytosis Present Laboratory Tests Test 11/12/16 03:40 White Blood Count 23.8x10^3/uL (4.0-11.0) Red Blood Count 4.11x10^6/uL (4.30-5.70) Hemoglobin 11.5g/dL (13.0-17.5) Hematocrit 35.4% (39.0-53.0) Mean Corpuscular Volume 86fL (79-100) Mean Corpuscular Hemoglobin 28pg (25-35) Mean Corpuscular Hemoglobin Concent 32g/dL (31-37) Red Cell Distribution Width 20.5% (11.5-14.5) Platelet Count 209x10^3/uL (140-400) Neutrophils (%) (Auto) 51% (31-73) Lymphocytes (%) (Auto) 5% (24-48) Monocytes (%) (Auto) 41% (0-9) Eosinophils (%) (Auto) 2% (0-3) Basophils (%) (Auto) 1% (0-3) Neutrophils # (Auto) 12.0x10^3uL (1.8-7.7) Lymphocytes # (Auto) 1.1x10^3/uL (1.0-4.8) Monocytes # (Auto) 9.8x10^3/uL (0.0-1.1) Eosinophils # (Auto) 0.6x10^3/uL (0.0-0.7) Basophils # (Auto) 0.2x10^3/uL (0.0-0.2) Medications Current Medications Acetaminophen (Tylenol) 650 mg HS PO Last administered on 11/07/16t 22:04; Start 11/06/16 at 21:00; Stop 11/08/16 at 06:11; Status DC Amlodipine Besylate (Norvasc) 5 mg DAILY PO Last administered on 11/07/16 09: 22; Start 11/06/16 at 09:00; Stop 11/09/16 at 04:54; Status DC Atorvastatin Calcium (Lipitor) 40 mg DAILY PO Last administered on 11/07/16 09 :23; Start 11/07/16 at 09:00; Stop 11/08/16 at 06:11; Status DC Celecoxib (Celebrex) 200 mg DAILY PO Last administered on 11/07/16 09:22; Start 11/07/16 at 09:00; Stop 11/09/16 at 04:54; Status DC Losartan Potassium (Cozaar) 50 mg DAILY PO Last administered on 11/10/16 08:03 ; Start 11/06/16 at 15:00; Stop 11/10/16 at 13:17; Status DC Rivaroxaban (Xarelto) 20 mg DAILYWSUP PO ; Start 11/06/16 at 17:00; Stop at 10:43; Status DC Vitamin E 400 unit DAILY PO Last administered on 11/12/16 10:19; Start at 09:00 Clopidogrel Bisulfate (Plavix) 75 mg DAILYWBKFT PO ; Start 11/07/16 at 08:00; Stop 11/07/16 at 08:00; Status DC Clopidogrel Bisulfate 75 mg 75 mg DAILYWBKFT PO Last administered on 11/12/16 10:19; Start 11/06/16 at 20:15 Heparin Sodium (Porcine) 5000 unit/Lactated Ringer's 505 ml @ 505 mls/hr 1X PERIOP ONCE IRR Last administered on 11/08/16 16:04; Start 11/08/16 at 08:00 ; Stop 11/08/16 at 08:59; Status DC Cefazolin Sodium/ Sodium Chloride (Ancef/Iv Sodium Chloride 0.9% 500ml Bag) 500 ml @ 500 mls/hr 1X PERIOP ONCE IRR Last administered on 11/08/16 16:04; Start 11/08/16 at 08:00; Stop 11/08/16 at 08:59; Status DC Levofloxacin (Levaquin) 500 mg DAILY06 PO Last administered on 11/11/16 06:03; Start 11/07/16 at 09:30; Stop 11/11/16 at 12:00; Status DC Fentanyl Citrate (Fentanyl 2ml Vial) 25 mcg PRN Q5MIN PRN IV MILD PAIN; Start 11/08/16 at 07:00; Stop 11/08/16 at 18:14; Status DC Fentanyl Citrate (Fentanyl 2ml Vial) 50 mcg PRN Q5MIN PRN IV MODERATE PAIN; Start 11/08/16 at 07:00; Stop 11/08/16 at 18:14; Status DC Morphine Sulfate 1 mg 1 mg PRN Q10MIN PRN IV SEVERE PAIN; Start 11/08/16 at 07: 00; Stop 11/08/16 at 18:14; Status DC Lactated Ringer's (Iv Lactated Ringers) 1,000 ml @ 30 mls/hr Q24H IV Last administered on 11/08/16 13:47; Start 11/08/16 at 07:00; Stop 11/08/16 at 18:59 ; Status DC Lidocaine HCl 2 ml 1X PRN PRN ID IV START; Start 11/08/16 at 07:00; Stop at 18:14; Status DC Hydromorphone HCl (Dilaudid) 0.5 mg PRN Q10MIN PRN IV SEVERE PAIN, Second choice; Start 11/08/16 at 07:00; Stop 11/08/16 at 18:14; Status DC Prochlorperazine Edisylate (Compazine) 5 mg PACU PRN PRN IV NAUSEA; Start 11/08 at 07:00; Stop 11/08/16 at 18:14; Status DC Acetaminophen (Tylenol) 650 mg HS PO Last administered on 11/11/16 21:44; Start 11/08/16 at 21:00 Atorvastatin Calcium (Lipitor) 40 mg DAILY PO Last administered on 11/09/16 08 :41; Start 11/08/16 at 06:11; Stop 11/10/16 at 07:25; Status DC Ropivacaine (Naropin 0.5%) 30 ml STK-MED ONCE .ROUTE ; Start 11/08/16 at 14:37; Stop 11/08/16 at 14:38; Status DC Midazolam HCl 2 mg 2 mg STK-MED ONCE .ROUTE ; Start 11/08/16 at 14:45; Stop at 14:46; Status DC Propofol 20 ml @ As Directed STK-MED ONCE IV ; Start 11/08/16 at 15:31; Stop at 15:32; Status DC Propofol 20 ml @ As Directed STK-MED ONCE IV ; Start 11/08/16 at 15:31; Stop at 15:32; Status DC Propofol (Diprivan) 20 ml @ As Directed STK-MED ONCE IV ; Start 11/08/16 at 15: 31; Stop 11/08/16 at 15:32; Status DC Acetaminophen/ Hydrocodone Bitart (Lortab 5/325) 1 tab PRN Q4HRS PRN PO PAIN; Start 11/08/16 at 15:45 Morphine Sulfate 2 mg PRN Q2HR PRN IV PAIN; Start 11/08/16 at 15:45 Labetalol HCl (Normodyne) 10 mg PRN Q2HR PRN IVP HYPERTENSION, SEE COMMENTS; Start 11/08/16 at 15:45 Cellulose 1 each STK-MED ONCE .ROUTE Last administered on 11/08/16 16:04; Start 11/08/16 at 15:37; Stop 11/08/16 at 15:38; Status DC Lidocaine HCl 20 ml 20 ml STK-MED ONCE .ROUTE Last administered on 11/08/16 16 :04; Start 11/08/16 at 15:37; Stop 11/08/16 at 15:38; Status DC Cefazolin Sodium/ Dextrose (Ancef 2gm Premix) 50 ml @ As Directed STK-MED ONCE IV ; Start 11/08/16 at 15:42; Stop 11/08/16 at 15:44; Status DC Glycopyrrolate (Robinul) 1 mg STK-MED ONCE .ROUTE ; Start 11/08/16 at 16:26; Stop 11/08/16 at 16:27; Status DC Succinylcholine Chloride (Anectine) 200 mg STK-MED ONCE .ROUTE ; Start 11/08/16 at 16:28; Stop 11/08/16 at 16:29; Status DC Dexamethasone Sodium Phosphate (Decadron) 20 mg STK-MED ONCE .ROUTE ; Start at 16:45; Stop 11/08/16 at 16:46; Status DC Fentanyl Citrate (Fentanyl 2ml Vial) 100 mcg STK-MED ONCE .ROUTE ; Start at 16:48; Stop 11/08/16 at 16:49; Status DC Famotidine (Pepcid) 20 mg STK-MED ONCE .ROUTE ; Start 11/08/16 at 16:49; Stop at 16:50; Status DC Ondansetron HCl (Zofran) 4 mg STK-MED ONCE .ROUTE ; Start 11/08/16 at 16:49; Stop 11/08/16 at 16:50; Status DC Phenylephrine HCl 1 mg STK-MED ONCE IV ; Start 11/08/16 at 16:57; Stop 11/08/16 at 16:58; Status DC Fentanyl Citrate (Fentanyl 2ml Vial) 100 mcg STK-MED ONCE .ROUTE ; Start at 17:33; Stop 11/08/16 at 17:34; Status DC Fentanyl Citrate (Fentanyl 2ml Vial) 100 mcg STK-MED ONCE .ROUTE ; Start at 18:32; Stop 11/08/16 at 18:33; Status DC Fentanyl Citrate (Fentanyl 2ml Vial) 50 mcg PRN Q5MIN PRN IV MODERATE PAIN Last administered on 11/08/16 19:10; Start 11/08/16 at 19:00; Stop 11/08/16 at 22:00; Status DC Morphine Sulfate 1 mg PRN Q10MIN PRN IV SEVERE PAIN; Start 11/08/16 at 19:00; Stop 11/08/16 at 22:00; Status DC Prochlorperazine Edisylate (Compazine) 5 mg PACU PRN PRN IV NAUSEA Last administered on 11/08/16 18:53; Start 11/08/16 at 19:00; Stop 11/08/16 at 22:00 ; Status DC Prochlorperazine Edisylate (Compazine) 10 mg STK-MED ONCE .ROUTE ; Start at 18:49; Stop 11/08/16 at 18:50; Status DC Amlodipine Besylate (Norvasc) 5 mg DAILY PO Last administered on 11/12/16 10:20 ; Start 11/09/16 at 09:00 Celecoxib (Celebrex) 200 mg DAILY PO Last administered on 11/12/16 10:19; Start 11/09/16 at 09:00 Gabapentin (Neurontin) 100 mg TID PO Last administered on 11/11/16 08:01; Start 11/09/16 at 15:30; Stop 11/11/16 at 11:16; Status DC Aspirin ([employer] Aspirin) 325 mg 1X ONCE PO Last administered on 11/09/16 22:10 ; Start 11/09/16 at 22:30; Stop 11/09/16 at 22:31; Status DC Aspirin (Scottie Aspirin) 325 mg DAILYWBKFT PO Last administered on 11/12/16 10: 19; Start 11/10/16 at 08:00 Atorvastatin Calcium (Lipitor) 40 mg QHS PO Last administered on 11/11/16 21:44 ; Start 11/10/16 at 21:00 Losartan Potassium (Cozaar) 50 mg STK-MED ONCE .ROUTE ; Start 11/10/16 at 07:30; Stop 11/10/16 at 07:31; Status DC Losartan Potassium (Cozaar) 50 mg DAILY PO Last administered on 11/12/16 10:20 ; Start 11/11/16 at 09:00 Active Scripts Active Reported Levofloxacin 500 Mg Tablet 1 Tab PO DAILY 10 Days Tylenol (Acetaminophen) 325 Mg Tablet 2 Tab PO HS Vitamin E (Vitamin E Mixed) 400 Unit Capsule 400 Unit PO DAILY Celebrex (Celecoxib) 200 Mg Capsule 1 Cap PO DAILY Irbesartan 150 Mg Tablet 150 Mg PO DAILY Atorvastatin Calcium 40 Mg Tablet 1 Tab PO DAILY Amlodipine Besylate 5 Mg Tablet 5 Mg PO DAILY Xarelto (Rivaroxaban) 20 Mg Tablet 20 Mg PO DAILY Vitals/I & O Vital Sign - Last 24 Hours 11/11/16 11/11/16 11/11/16 11/11/16 15:55 19:10 20:00 23:15 Temp 97.8 97.4 98.1 97.8 97.4 98.1 Pulse 85 95 83 Resp 20 18 16 B/P 133/55 135/56 138/66 Pulse Ox 94 94 94 O2 Delivery Room Air Room Air Room Air Room Air 11/12/16 11/12/16 11/12/16 11/12/16 03:35 07:44 08:00 10:20 Temp 98.7 98.5 98.7 98.5 Pulse 90 87 87 Resp 18 20 B/P 154/78 166/72 166/72 Pulse Ox 95 91 O2 Delivery Room Air Room Air Room Air 11/12/16 10:20 Pulse 87 B/P 166/72 Intake and Output 11/11/16 11/11/16 11/12/16 15:00 23:00 07:00 Intake Total 200 ml 590 ml Balance 200 ml 590 ml ADRIANA AKINS MD Nov 12, 2016 11:10
--- NOTE | 2016-11-12 16:24 | PDOC ---
GENERAL General: vss and afebrile. awake and alert. walker at his side. in attendance. exam stable. to snu for therapy when arrangements can be made. WBC still elevated at 23K. will recheck in rehab. Problems: VITAL SIGNS Vital Signs: Vital Signs Date Time Temp Pulse Resp B/P Pulse Ox O2 Delivery O2 Flow Rate FiO2 11/12/16 11:00 98.2 88 20 155/71 94 Room Air 98.2 I & O I & O Intake and Output 11/12/16 06:59 Intake Total 790 ml Balance 790 ml Intake Oral 790 ml # Voids 2 ALLERGIES Allergies: Allergies Coded Allergies Type Severity Reaction Last Updated Verified No Known Drug Allergies 01/14/15 No MEDS Medications: Current Medications Medications (Trade) Dose Ordered Sig/Damon Start Time Stop Time Status Last Admin Dose Admin Acetaminophen (Tylenol) 650 mg HS 11/08/16 21:00 11/11/16 21:44 650 MG Acetaminophen/ Hydrocodone Bitart (Lortab 5/325) 1 tab PRN Q4HRS PRN 11/08/16 15:45 Amlodipine Besylate (Norvasc) 5 mg DAILY 11/09/16 09:00 11/12/16 10:20 5 MG Aspirin (Scottie Aspirin) 325 mg DAILYWBKFT 11/10/16 08:00 11/12/16 10:19 325 MG Atorvastatin Calcium (Lipitor) 40 mg QHS 11/10/16 21:00 11/11/16 21:44 40 MG Cefazolin Sodium/ Dextrose (Ancef 2gm Premix) 50 ml @ As Directed STK-MED ONCE 11/08/16 15:42 11/08/16 15:44 DC Cefazolin Sodium/ Sodium Chloride (Ancef/Iv Sodium Chloride 0.9% 500ml Bag) 500 ml @ 500 mls/hr 1X PERIOP ONCE 11/08/16 08:00 11/08/16 08:59 DC 11/08/16 16:04 Celecoxib (Celebrex) 200 mg DAILY 11/09/16 09:00 11/12/16 10:19 200 MG Cellulose 1 each STK-MED ONCE 11/08/16 15:37 11/08/16 15:38 DC 11/08/16 16:04 1 EACH Clopidogrel Bisulfate (Plavix) 75 mg DAILYWBKFT 11/07/16 08:00 11/07/16 08:00 DC Clopidogrel Bisulfate 75 mg 75 mg DAILYWBKFT 11/06/16 20:15 11/12/16 10:19 75 MG Dexamethasone Sodium Phosphate (Decadron) 20 mg STK-MED ONCE 11/08/16 16:45 11/08/16 16:46 DC Famotidine (Pepcid) 20 mg STK-MED ONCE 11/08/16 16:49 11/08/16 16:50 DC Fentanyl Citrate (Fentanyl 2ml Vial) 50 mcg PRN Q5MIN PRN 11/08/16 19:00 11/08/16 22:00 DC 11/08/16 19:10 50 MCG Gabapentin (Neurontin) 100 mg TID 11/09/16 15:30 11/11/16 11:16 DC 11/11/16 08:01 100 MG Glycopyrrolate (Robinul) 1 mg STK-MED ONCE 11/08/16 16:26 11/08/16 16:27 DC Heparin Sodium (Porcine) 5000 unit/Lactated Ringer's 505 ml @ 505 mls/hr 1X PERIOP ONCE 11/08/16 08:00 11/08/16 08:59 DC 11/08/16 16:04 Hydromorphone HCl (Dilaudid) 0.5 mg PRN Q10MIN PRN 11/08/16 07:00 11/08/16 18:14 DC Labetalol HCl (Normodyne) 10 mg PRN Q2HR PRN 11/08/16 15:45 Lactated Ringer's (Iv Lactated Ringers) 1,000 ml @ 30 mls/hr Q24H 11/08/16 07:00 11/08/16 18:59 DC 11/08/16 13:47 30 MLS/HR Levofloxacin (Levaquin) 500 mg DAILY06 11/07/16 09:30 11/11/16 12:00 DC 11/11/16 06:03 500 MG Lidocaine HCl 2 ml 1X PRN PRN 11/08/16 07:00 11/08/16 18:14 DC Lidocaine HCl 20 ml 20 ml STK-MED ONCE 11/08/16 15:37 11/08/16 15:38 DC 11/08/16 16:04 8 ML Losartan Potassium (Cozaar) 50 mg DAILY 11/11/16 09:00 11/12/16 10:20 50 MG Midazolam HCl 2 mg 2 mg STK-MED ONCE 11/08/16 14:45 11/08/16 14:46 DC Morphine Sulfate 1 mg PRN Q10MIN PRN 11/08/16 19:00 11/08/16 22:00 DC Morphine Sulfate 1 mg 1 mg PRN Q10MIN PRN 11/08/16 07:00 11/08/16 18:14 DC Ondansetron HCl (Zofran) 4 mg STK-MED ONCE 11/08/16 16:49 11/08/16 16:50 DC Phenylephrine HCl 1 mg STK-MED ONCE 11/08/16 16:57 11/08/16 16:58 DC Prochlorperazine Edisylate (Compazine) 10 mg STK-MED ONCE 11/08/16 18:49 11/08/16 18:50 DC Propofol (Diprivan) 20 ml @ As Directed STK-MED ONCE 11/08/16 15:31 11/08/16 15:32 DC Rivaroxaban (Xarelto) 20 mg DAILYWSUP 11/06/16 17:00 11/07/16 10:43 DC Ropivacaine (Naropin 0.5%) 30 ml STK-MED ONCE 11/08/16 14:37 11/08/16 14:38 DC Succinylcholine Chloride (Anectine) 200 mg STK-MED ONCE 11/08/16 16:28 11/08/16 16:29 DC Vitamin E 400 unit DAILY 11/07/16 09:00 11/12/16 10:19 400 UNIT LAB Lab: Laboratory Tests Test 11/12/16 03:40 White Blood Count 23.8x10^3/uL (4.0-11.0) Red Blood Count 4.11x10^6/uL (4.30-5.70) Hemoglobin 11.5g/dL (13.0-17.5) Hematocrit 35.4% (39.0-53.0) Mean Corpuscular Volume 86fL (79-100) Mean Corpuscular Hemoglobin 28pg (25-35) Mean Corpuscular Hemoglobin Concent 32g/dL (31-37) Red Cell Distribution Width 20.5% (11.5-14.5) Platelet Count 209x10^3/uL (140-400) Neutrophils (%) (Auto) 51% (31-73) Lymphocytes (%) (Auto) 5% (24-48) Monocytes (%) (Auto) 41% (0-9) Eosinophils (%) (Auto) 2% (0-3) Basophils (%) (Auto) 1% (0-3) Neutrophils # (Auto) 12.0x10^3uL (1.8-7.7) Lymphocytes # (Auto) 1.1x10^3/uL (1.0-4.8) Monocytes # (Auto) 9.8x10^3/uL (0.0-1.1) Eosinophils # (Auto) 0.6x10^3/uL (0.0-0.7) Basophils # (Auto) 0.2x10^3/uL (0.0-0.2) ARSENIO ENGLISH MD Nov 12, 2016 16:24
--- NOTE | 2016-11-13 03:04 | DS ---
DATE OF DISCHARGE: 11/12/2016 PRIMARY DIAGNOSIS: Right thalamic acute cerebrovascular accident. ADDITIONAL DIAGNOSES: Critical right carotid artery stenosis, history of deep venous thrombosis, history of atherosclerotic heart disease with prior coronary artery bypass graft and prior left-sided cerebrovascular accident in the past. CHIEF COMPLAINT AND HISTORY OF PRESENT ILLNESS: This is a 76-year-old white male who was admitted through the office on the day of admission with a feeling that he probably had a stroke. He woke up with left-sided facial, arm and leg numbness. He had no motor difficulties with this and felt he was having a TIA versus stroke. The patient was admitted. SUMMARY OF STAY: The patient was admitted. Imaging confirmed acute right-sided thalamic CVA. Carotid Doppler showed greater than 70% stenosis of his right carotid artery. Vascular Surgery did a carotid endarterectomy during the stay. He did have some ambulation difficulties and therapy recommended SNF stay. He did have 1 fall in the hospital while trying to go to the bathroom on his own without help. Rest of his conditions stable. He was stable, felt ready for transfer to SNF on the day of discharge and this was accomplished. DISPOSITION: The patient is discharged to [facility], regular diet, activity with help and therapy to follow. DISCHARGE MEDICATIONS: Listed on the med rec and have been addressed. We will be following him later. ARSENIO ENGLISH MD DR: OREN/analisa JOB#: [id number] / [id number]
--- NOTE | 2016-11-16 12:57 | PATHOLOGY ---
PATHOLOGY REPORT * * * * * * * * FINAL DIAGNOSIS: Arterial plaque, right carotid, removal: - Amorphous material with calcifications (gross diagnosis only). (SHERICE:; d/t: 11/16/16) REPORT ELECTRONICALLY SIGNED BY: David Marquez M.D. DATE/TIME: 11/16/2016 12:56 * * * * * * * * GROSS PATHOLOGY: The specimen is received in formalin labeled "Adriana Dong, right carotid plaque". Received is a tubular segment of yellow-ragland rubbery tissue with multiple foci of calcifications measuring 2.7 cm in length by 1.2 cm in diameter. A gross photograph is taken. Sections are not submitted. (CAA; 11/09/2016) INITIAL CPT CODE(S): A; 92795 Professional services performed by [facility], [place] [address]. Technical services performed by [facility], [address] [place] [address], [address] [address]. SPECIMEN(S) RECEIVED: A.Right carotid plaque CLINICAL HISTORY: Symptomatic right carotid stenosis PATIENT: ADRIANA DONG /AGE: 109/09/1940 (Age: 76) PATIENT #: [id number] ALT CASE #: SPECIMEN COLLECTION DATE: 11/08/2016 SPECIMEN RECEIVED DATE: 11/09/2016 [facility] [address] [place] [address] - PHONE: [phone] * * * END OF REPORT * * *
== END 2016-11-12 16:24 | DRG 37 ==
LOC: 6 SOUTH 10:15 → 2 NORTH 11-08 19:28
PROVIDERS: ADMIT Family Medicine; ATTEND Family Medicine
PROC: 03UK0JZ Supplement Right Internal Carotid Artery with Synthetic Substitute, Open Approach (ICD-10-PCS; 2016-11-08)
PROC: 03CK0ZZ Extirpation of Matter from Right Internal Carotid Artery, Open Approach (ICD-10-PCS; principal; 2016-11-08 14:45)
DX: I65.21 Occlusion and stenosis of right carotid artery (principal); I63.9 Cerebral infarction, unspecified; D72.829 Elevated white blood cell count, unspecified; E78.00 Pure hypercholesterolemia, unspecified; E78.5 Hyperlipidemia, unspecified; I10 Essential (primary) hypertension; G89.29 Other chronic pain; M19.90 Unspecified osteoarthritis, unspecified site; I25.10 Atherosclerotic heart disease of native coronary artery without angina pectoris; K59.00 Constipation, unspecified; Z79.01 Long term (current) use of anticoagulants; Z79.02 Long term (current) use of antithrombotics/antiplatelets; Z79.82 Long term (current) use of aspirin; Z79.899 Other long term (current) drug therapy; Z86.711 Personal history of pulmonary embolism; Z86.718 Personal history of other venous thrombosis and embolism; Z87.891 Personal history of nicotine dependence; Z91.81 History of falling; Z95.1 Presence of aortocoronary bypass graft
CPT/HCPCS: 36415; 70450; 70551; 72020; 72125; 80048; 80061; 81001; 85007; 85027; 85651; 88304; 93880; C8929; J0330; J0690; J0780; J1100; J2250; J2370; J2405; J2704; J2795; J3010; J3490; J7040; J7120; S0028; 97110; 97116; 97530; 97535

== ENCOUNTER 2018-01-17 20:14 | Emergency (ER) | payer MEDICARE, BC | END 2018-01-17 22:56 | disposition home or self-care (01) | LOC: ER 20:14 | DX: R42 Dizziness and giddiness (principal) | CPT/HCPCS: 99284 ==